=== PATIENT | female | born 1955 | race Caucasian/White ===

== ENCOUNTER 2017-02-11 21:55 | Inpatient (IN) | payer OTHER ==
[~2017-02-11] VITALS: Ht 152.4 cm; Wt 98.0 kg
[2017-02-11] MEDS ORDERED: ONDANSETRON INJ 2 MG/ML 2 ML VIAL IV STA (23:10)
[2017-02-11] MEDS ORDERED: OXYC-57 PO (23:13)
[2017-02-11] MEDS ORDERED: VNTHFA/IN INH (23:13)
[2017-02-11] MEDS ORDERED: ESCI10TA17 PO (23:13)
[2017-02-11] MEDS ORDERED: PRIM50TA29 PO (23:13)
[2017-02-11] MEDS ORDERED: CALCCAP14 PO (23:13)
[2017-02-11] MEDS ORDERED: OMEP20CA9 PO (23:13)
[2017-02-11] MEDS ORDERED: MULT-916 PO (23:13)
[2017-02-11] MEDS ORDERED: SODIUM CHLORIDE 0.9% 1000ML 1,000 ML IV ONE (23:15)
[2017-02-11] MEDS ORDERED: MoRPHine SULFATE 4 MG/ML 1 ML CARP\\VIAL IV ONE (23:15)
[2017-02-11 23:31] LABS: BASO % 0.5 %; BASO ABS # 0.03 K/uL (0-0.2); COMPLETE YES; HEMATOCRIT 44.6 % (37-47); IG% 0.2 %; LYMPH % 24.8 %; LYMPH ABS # 1.65 K/uL (1.2-3.4); MEAN CELL VOLUME 92.5 fL (80-100); MEAN CORPUSCULAR HEMOGLOBIN 30.1 pg (25-34); MEAN CORPUSCULAR HGB CONC 32.5 g/dl (32-36); MEAN PLATELET VOLUME 9.7 fL (7.4-10.4); MONO % 7.7 %; NEUT % 64.8 %; PLATELET COUNT 308 K/uL (130-400); RED BLOOD COUNT 4.82 M/uL (4.2-5.4); WHITE BLOOD COUNT 6.64 K/uL (4.8-10.8)
[2017-02-11 23:55] LABS: BUN/CREATININE RATIO 23.1 (10-20); CALCIUM 9.3 mg/dl (8.5-10.1); CREATININE 0.6 mg/dl (0.60-1.20); POTASSIUM 3.7 mmol/L (3.5-5.1)
[2017-02-11 23:58] LABS: ALB/GLOB RATIO 0.8 (0.9-2)
[2017-02-12] MEDS ORDERED: OPTIRAY 320 IV PRN (00:15)
--- NOTE | 2017-02-12 03:08 | EMERGENCY ROOM VISIT NOTE ---
ED Visit Note First contact with patient: 22:49 I have personally evaluated and examined this patient. I agree with assessment and plan of Dereje Spencer PA-C.
--- NOTE | 2017-02-12 04:33 | EMERGENCY ROOM VISIT NOTE ---
History First contact with patient: 22:49 Chief Complaint: ABDOMINAL PAIN Stated Complaint: GENERALIZED ILLNESS Nursing Triage Summary: Patient arrived via EMS. EMS reports patient had a fall last week. EMS reports Patient at home today with nausea and vomiting x4 days. Patient states "I haven't eaten in four days and I can't keep anything down, I am dehydrated." Patient reports right upper quadrant pain that started today after eating a peanutbutter candy at a 3/10 in intensity. Patient respirations at 30 upon ems arrival and patient 90% on room air. Patient palced on O2 @ 4lpm by ems with sats rising to 100%. Patient reports hisrtoy of right cerebelar ataxia with difficulty using right side of body. History of Present Illness The patient is a 61 year old female who presents to the Emergency Room for evaluation of multiple complaints. The patient states that she has had nausea and vomiting for the past 4 days and has not been able to eat or drink because of this. She feels dehydrated. The patient states that about one hour prior to contacting EMS she ate a peanut butter and chocolate candy, which caused her 9/10 epigastric abdominal pain. The patient was not able to get comfortable, and contacted EMS for her symptoms. On arrival the patient was anxious with a pulse ox of 90%. She was given oxygen, which did boost her saturation to 100%. The patient also reports having several falls about one week ago, where she has followed with her primary care physician. She believes that she fell onto her right side hip and buttocks. She attempted to take a Percocet today without any relief of her symptoms. She has not had fever or chills. No chest pain or shortness of breath. 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. She was to have physical therapy, but is having insurance difficulties and has not been able to do this. She believes this may contribute to her difficulty walking and her fall last week. The patient does not have numbness or paresthesias. She rates her current discomfort an 8/10, only slightly improved from the initial pain. She does not report a history of abdominal surgery. Review of Systems More than 10 systems were reviewed and otherwise negative with the exception of history of present illness. Past Medical/Surgical History Reported history of cerebellar ataxia Family History No pertinent family history Social History Smoking Status: Never Smoker Current/Historical Medications Scheduled Calcium Carbonate-Cholecalcife (Calcium/Vitamin D3), 1 CAP PO QAM Escitalopram (Lexapro), 10 MG PO QAM Multiple Vitamins W/ Minerals (Multivitamin Adults 50+), 1 TAB PO QAM Omeprazole (Prilosec), 20 MG PO QAM Primidone (Mysoline), 100 MG PO HS Scheduled PRN Albuterol Hfa (Ventolin Hfa), 1-2 PUFFS INH Q6H PRN for Shortness of Breath Oxycodone/Acetaminophen 5MG/325MG (Percocet 5MG/325MG), 1 TABLET PO Q4H PRN for Pain Allergies Coded Allergies: Amoxicillin (Verified Allergy, Intermediate, RASH ALL OVER BODY, 02/11/17) Clavulanic Acid (Verified Allergy, Intermediate, RASH ALL OVER BODY, ) Oat Rolled (Verified Allergy, Intermediate, RASH, 02/11/17) Physical Exam Vital Signs Date Time Temp Pulse Resp B/P Pulse Ox O2 Delivery O2 Flow Rate FiO2 02/12/17 04:11 70 18 139/54 94 Nasal Cannula 2.0 02/12/17 03:05 66 02/12/17 02:11 52 18 135/68 94 Nasal Cannula 2.0 02/12/17 00:30 51 18 155/61 95 Nasal Cannula 2.0 02/12/17 00:02 65 18 96/66 95 Nasal Cannula 2.0 02/11/17 23:17 67 02/11/17 22:04 36.6 55 20 158/66 94 Nasal Cannula 2.0 Physical Exam VITALS: Vitals are noted on the nurse's note and reviewed by myself. Vital signs stable. GENERAL: Chronically ill-appearing female who is in moderate discomfort. She is holding her abdomen with her right arm and is uncomfortable with movement in the ER bed. HEART: Regular rate and rhythm without murmurs gallops or rubs. LUNGS: Clear to auscultation bilaterally without wheezes, rales or rhonchi. No retractions or accessory muscle use. ABDOMEN: Positive normal bowel sounds x 4. Soft with generalized tenderness but does appear worse in the epigastrium and right upper quadrant. There is no distinct lower abdominal tenderness or CVA tenderness. MUSCULOSKELETAL: No muscle atrophy, erythema, or edema noted. There is mild tenderness throughout the right side chest wall into the right upper quadrant. No obvious flail chest, lacerations, or abrasions. There is tenderness of the low lumbar spine into the sacrum. NEURO: Patient was alert and oriented to person place and time. Medical Decision & Procedures ER Provider Diagnostic Interpretation: Preliminary Findings Only See Final Report For Complete Findings US GALLBLADDER: Dense enlarged liver likely fatty. Cholelithiasis without acute cholecystitis. CBD slightly prominent at 7 mm. Consider MRCP if further clinical concern. Pancreas not well seen. Right kidney unremarkable. Preliminary Findings Only See Final Report For Complete Findings CT CHEST With Contrast: Bibasilar lung atelectasis. No pleural effusion or pneumothorax. Osseous structures intact. Fatty liver. Small low-density lesion in the liver. CT ABDOMEN & PELVIS: Irregularity slight compression of as S1, S2 vertebral bodies, worrisome for mild acute fracture. Mild presacral stranding. No malalignment. Fatty liver. Small low-density lesion in liver. Small hiatal hernia. Normal appendix. Scattered colonic tics. Uterus absent. 2.4 cm lesion in the right ovary. Laboratory Results 02/11/17 20:52 Red Blood Count 4.82, Mean Corpuscular Volume 92.5, Mean Corpuscular Hemoglobin 30.1, Mean Corpuscular Hemoglobin Concent 32.5, Mean Platelet Volume 9.7, Neutrophils (%) (Auto) 64.8, Lymphocytes (%) (Auto) 24.8, Monocytes (%) (Auto) 7.7, Eosinophils (%) (Auto) 2.0, Basophils (%) (Auto) 0.5, Neutrophils # (Auto) 4.31, Lymphocytes # (Auto) 1.65, Monocytes # (Auto) 0.51, Eosinophils # (Auto) 0.13, Basophils # (Auto) 0.03 02/11/17 20:52 Test 02/11/17 20:52 White Blood Count 6.64 K/uL (4.8-10.8) Red Blood Count 4.82 M/uL (4.2-5.4) Hemoglobin 14.5 g/dL (12.0-16.0) Hematocrit 44.6 % (37-47) Mean Corpuscular Volume 92.5 fL (80-100) Mean Corpuscular Hemoglobin 30.1 pg (25-34) Mean Corpuscular Hemoglobin Concent 32.5 g/dl (32-36) Platelet Count 308 K/uL (130-400) Mean Platelet Volume 9.7 fL (7.4-10.4) Neutrophils (%) (Auto) 64.8 % Lymphocytes (%) (Auto) 24.8 % Monocytes (%) (Auto) 7.7 % Eosinophils (%) (Auto) 2.0 % Basophils (%) (Auto) 0.5 % Neutrophils # (Auto) 4.31 K/uL (1.4-6.5) Lymphocytes # (Auto) 1.65 K/uL (1.2-3.4) Monocytes # (Auto) 0.51 K/uL (0.11-0.59) Eosinophils # (Auto) 0.13 K/uL (0-0.5) Basophils # (Auto) 0.03 K/uL (0-0.2) RDW Standard Deviation 42.3 fL (36.4-46.3) RDW Coefficient of Variation 12.5 % (11.5-14.5) Immature Granulocyte % (Auto) 0.2 % Immature Granulocyte # (Auto) 0.01 K/uL (0.00-0.02) Anion Gap 5.0 mmol/L (3-11) Est Creatinine Clear Calc Drug Dose 103.4 ml/min Estimated GFR () 114.0 Estimated GFR (Non- 98.4 BUN/Creatinine Ratio 23.1 (10-20) Calcium Level 9.3 mg/dl (8.5-10.1) Total Bilirubin 0.6 mg/dl (0.2-1) Aspartate Amino Transf (AST/SGOT) 33 U/L (15-37) Alanine Aminotransferase (ALT/SGPT) 45 U/L (12-78) Alkaline Phosphatase 121 U/L (45-117) Total Protein 8.1 gm/dl (6.4-8.2) Albumin 3.7 gm/dl (3.4-5.0) Globulin 4.4 gm/dl (2.5-4.0) Albumin/Globulin Ratio 0.8 (0.9-2) Lipase 121 U/L (73-393) Medications Administered Medications (Trade) Dose Ordered Sig/Rachana Route Start Time Stop Time Status Last Admin Dose Admin Sodium Chloride (Nss 1000ml) 1,000 ml @ 999 mls/hr Q1H1M ONCE IV 02/11/17 23:15 02/12/17 00:15 DC 02/11/17 23:17 999 MLS/HR Ondansetron HCl (Zofran Inj) 4 mg NOW STAT IV 02/11/17 23:10 02/11/17 23:13 DC 02/11/17 23:17 4 MG Morphine Sulfate (MoRPHine SULFATE INJ) 4 mg NOW ONCE IV 02/11/17 23:15 02/11/17 23:16 DC 02/11/17 23:17 4 MG ED Course Physical exam and history were performed. Nursing notes and EMR were reviewed. Patient appears to have several fissures bringing her to the emergency department today. On examination she appears uncomfortable and is holding her right side abdomen. IV access was established and labs were obtained. The patient was hydrated and medicated as above. There is concern that her symptoms could represent a biliary etiology, and ultrasound was performed. Initially the patient has this vague right sided chest wall pain into her right side abdomen, and I did elect to perform CT imaging of the chest, abdomen, and pelvis. The patient's blood work is as above and was reviewed. She does not have a significantly elevated white blood cell count, gross anemia, bandemia, or significant electrolyte imbalance. Lipase and transaminases are nondiagnostic. Her main labs are fairly unremarkable. Ultrasound does show cholelithiasis with a dilated common bile duct. There is no obvious biliary stone. CT scans do not show acute findings in the lungs or abdomen. There appears to be acute or subacute fractures of the sacrum. On continued evaluation the patient was with persistent discomfort, although was somewhat improved. She did add additional history regarding her fall, and she does have palpable tenderness of her sacrum. CT scan does show very small fractures, but this area does not appear with obvious signs of infection. The patient did not report any neurologic deficit to myself. She has some ambulatory dysfunction at baseline, and this certainly is not helping her with her activities of daily living. I discussed the case with my attending physician, Dr. Reagan, who also independently evaluated the patient. We have concern for the patient's abdominal pain, particularly as it does seem biliary in nature. She has not been able to eat or drink because of her symptoms, and only appears improved after IV medication. She also has several ongoing chronic conditions that may benefit from further management. I discussed the case with the on-call hospitalist who agreed to evaluate the patient here in the emergency department for further care and management. Please see their dictation for further patient course, plan, and disposition. The chart was completed utilizing [employer] Speech Voice Recognition Software. Grammatical errors, random word insertions, pronoun errors, and incomplete sentences are an occasional consequence of this system due to software limitations, ambient noise, and hardware issues. Any formal questions or concerns about the content, text, or information contained within the body of this dictation should be directly addressed to the provider for clarification. . Medical Decision Differential diagnosis: Etiologies such as appendicitis, diverticulitis, PUD, biliary pathology, UTI, pancreatitis, obstruction, mesenteric ischemia, aortic pathology, infections, inflammatory bowel disease, renal colic, as well as others were entertained. Impression Primary Impression: Right upper quadrant abdominal pain Additional Impressions: Nausea & vomiting Sacral fracture Departure Information Referrals Bc Landis (PCP) Patient Instructions [facility] Problem Qualifiers
[2017-02-12] MEDS ORDERED: IV FLUIDS COMPLETED PRN (05:00)
[2017-02-12 05:09] VITALS: Ht 152.4 cm; Wt 98.0 kg
[2017-02-12] MEDS ORDERED: MICONAZOLE NITRATE POWDER 43 GM EXT PRN (05:45)
--- NOTE | 2017-02-12 06:40 | DIAGNOSTIC IMAGING REPORT ---
ABDOMINAL ULTRASOUND, RIGHT UPPER QUADRANT HISTORY: Fall. RUQ abd pain possibly worse with food. COMPARISON: None. FINDINGS: Increased hepatic echogenicity is noted. Tiny echogenic foci within the gallbladder likely reflect small stones. There is minimal sludge within the gallbladder. There is no gallbladder wall thickening. The pancreatic body is normal. The head and tail are obscured. There is no right hydronephrosis. Caliber of the common bile duct is at the upper limits of normal. IMPRESSION: 1. Fatty liver. 2. Cholelithiasis. No gallbladder wall thickening. Electronically signed by: Demetris Lezama M.D. 02/12/2017 6:39 AM Dictated Date/Time: 02/12/2017 6:36 AM
[2017-02-12] MEDS ORDERED: ONDANSETRON INJ 2 MG/ML 2 ML VIAL IV PRN (07:00)
--- NOTE | 2017-02-12 07:06 | DIAGNOSTIC IMAGING REPORT ---
CT OF THE CHEST WITH IV CONTRAST CLINICAL HISTORY: Fall. Right low chest/ruq abd pain COMPARISON STUDY: No previous studies for comparison. TECHNIQUE: Following IV administration of 93 mL of Optiray-320, helical axial images of the chest were obtained. Images were viewed in the axial, sagittal and coronal planes. IV contrast was administered without complication. FINDINGS: No pneumothorax or pleural effusion is present. Ground glass opacities reflect atelectasis. There is moderate cardiomegaly. No pericardial effusion is identified. No enlarged thoracic lymph nodes are present. No acute rib or thoracic spine fractures are present. The abdomen and pelvis will be reported separately. There is fatty infiltration of the liver with a 1.3 cm left hepatic lobe lesion which is likely benign. IMPRESSION: 1. No acute traumatic findings within the chest. 2. Moderate cardiomegaly. 3. Dependent and ground glass opacities within lungs consistent with atelectasis. Electronically signed by: Demetris Lezama M.D. 02/12/2017 7:05 AM Dictated Date/Time: 02/12/2017 6:58 AM
--- NOTE | 2017-02-12 07:30 | History and Physical ---
History & Physical Date & Time of Service: February 12, 2017 at 07:22 Chief Complaint: Nausea/Vomiting, Ruq Pain Primary Care Physician: Bc Landis History of Present Illness Source: patient Mrs Shea is a 61 year old female with cerebellar ataxia who presents to the ER with nausea and abdominal pain. The abdominal pain only slightly improved with medication in the ER and she notes is mostly epigastric and RUQ regions. The pain is much worse with eating and this makes her vomit. She denies any change of bowel habit. No GI bleeding. She was also hypoxic when arrived in the ER which improved with 2L O2 via NC of which the etiology is unclear. She denies any fevers or chills. Past Medical/Surgical History Cerebellar ataxia Social History Smoking Status: Former Smoker Allergies Coded Allergies: Amoxicillin (Verified Allergy, Intermediate, RASH ALL OVER BODY, 02/11/17) Clavulanic Acid (Verified Allergy, Intermediate, RASH ALL OVER BODY, ) Oat Rolled (Verified Allergy, Intermediate, RASH, 02/11/17) Home Medications Scheduled Calcium Carbonate-Cholecalcife (Calcium/Vitamin D3), 1 CAP PO QAM Escitalopram (Lexapro), 10 MG PO QAM Lidocaine (Lidocaine), 1 PATCH TD QAM Multiple Vitamins W/ Minerals (Multivitamin Adults 50+), 1 TAB PO QAM Omeprazole (Prilosec), 20 MG PO QAM Primidone (Mysoline), 100 MG PO HS Scheduled PRN Albuterol Hfa (Ventolin Hfa), 1-2 PUFFS INH Q6H PRN for Shortness of Breath Oxycodone/Acetaminophen 5MG/325MG (Percocet 5MG/325MG), 1 TABLET PO Q4H PRN for Pain Review of Systems Constitutional: No fever, No chills Eyes: No worsening of vision ENT: No hearing loss Respiratory: No cough, No sputum, No wheezing, No shortness of breath Cardiovascular: No chest pain Abdomen: + pain, + nausea, + vomiting, No diarrhea, No constipation, No GI bleeding Musculoskeletal: No joint pain, No muscle pain Genitourinary - Female: No dysuria, No urinary frequency Neurologic: No weakness Endocrine: No fatigue Hematologic / Lymphatic: No abnormal bleeding/bruising Integumentary: No rash, No itch Physical Exam Vital Signs Date Time Temp Pulse Resp B/P Pulse Ox O2 Delivery O2 Flow Rate FiO2 02/12/17 05:10 Nasal Cannula 2.0 02/12/17 05:09 Nasal Cannula 2.0 02/12/17 04:11 70 18 139/54 94 Nasal Cannula 2.0 02/12/17 03:05 66 02/12/17 02:11 52 18 135/68 94 Nasal Cannula 2.0 02/12/17 00:30 51 18 155/61 95 Nasal Cannula 2.0 02/12/17 00:02 65 18 96/66 95 Nasal Cannula 2.0 02/11/17 23:17 67 02/11/17 22:04 36.6 55 20 158/66 94 Nasal Cannula 2.0 General Appearance: WD/WN, + mild distress (from pain) Respiratory/Chest: chest non-tender, lungs clear, normal breath sounds, no respiratory distress, no accessory muscle use Cardiovascular: regular rate, rhythm, no edema, no murmur, normal peripheral pulses Abdomen/GI: normal bowel sounds, soft (non distended), + tenderness ( generalized without rebound or guarding) Back: no CVA tenderness Extremities/Musculoskelatal: no calf tenderness, normal capillary refill, no pedal edema Neurologic/Psych: no motor/sensory deficits (grossly moving all 4 limbs equally , gait not assessed), alert, oriented x 3 Skin: normal color, warm/dry, no rash Diagnostics Laboratory Results Results Past 24 Hours Test 02/11/17 20:52 Range/Units White Blood Count 6.64 4.8-10.8 K/uL Red Blood Count 4.82 4.2-5.4 M/uL Hemoglobin 14.5 12.0-16.0 g/dL Hematocrit 44.6 37-47 % Mean Corpuscular Volume 92.5 80-100 fL Mean Corpuscular Hemoglobin 30.1 25-34 pg Mean Corpuscular Hemoglobin Concent 32.5 32-36 g/dl Platelet Count 308 130-400 K/uL Mean Platelet Volume 9.7 7.4-10.4 fL Neutrophils (%) (Auto) 64.8 % Lymphocytes (%) (Auto) 24.8 % Monocytes (%) (Auto) 7.7 % Eosinophils (%) (Auto) 2.0 % Basophils (%) (Auto) 0.5 % Neutrophils # (Auto) 4.31 1.4-6.5 K/uL Lymphocytes # (Auto) 1.65 1.2-3.4 K/uL Monocytes # (Auto) 0.51 0.11-0.59 K/uL Eosinophils # (Auto) 0.13 0-0.5 K/uL Basophils # (Auto) 0.03 0-0.2 K/uL RDW Standard Deviation 42.3 36.4-46.3 fL RDW Coefficient of Variation 12.5 11.5-14.5 % Immature Granulocyte % (Auto) 0.2 % Immature Granulocyte # (Auto) 0.01 0.00-0.02 K/uL Sodium Level 139 136-145 mmol/L Potassium Level 3.7 3.5-5.1 mmol/L Chloride Level 102 98-107 mmol/L Carbon Dioxide Level 32 21-32 mmol/L Anion Gap 5.0 3-11 mmol/L Blood Urea Nitrogen 14 7-18 mg/dl Creatinine 0.60 0.60-1.20 mg/dl Est Creatinine Clear Calc Drug Dose 103.4 ml/min Estimated GFR () 114.0 Estimated GFR (Non- 98.4 BUN/Creatinine Ratio 23.1 10-20 Random Glucose 110 70-99 mg/dl Calcium Level 9.3 8.5-10.1 mg/dl Total Bilirubin 0.6 0.2-1 mg/dl Aspartate Amino Transf (AST/SGOT) 33 15-37 U/L Alanine Aminotransferase (ALT/SGPT) 45 12-78 U/L Alkaline Phosphatase 121 45-117 U/L Total Protein 8.1 6.4-8.2 gm/dl Albumin 3.7 3.4-5.0 gm/dl Globulin 4.4 2.5-4.0 gm/dl Albumin/Globulin Ratio 0.8 0.9-2 Lipase 121 73-393 U/L Diagnostic Radiology ABDOMINAL ULTRASOUND, RIGHT UPPER QUADRANT HISTORY: Fall. RUQ abd pain possibly worse with food. COMPARISON: None. FINDINGS: Increased hepatic echogenicity is noted. Tiny echogenic foci within the gallbladder likely reflect small stones. There is minimal sludge within the gallbladder. There is no gallbladder wall thickening. The pancreatic body is normal. The head and tail are obscured. There is no right hydronephrosis. Caliber of the common bile duct is at the upper limits of normal. IMPRESSION: 1. Fatty liver. 2. Cholelithiasis. No gallbladder wall thickening. Electronically signed by: Demetris Lezama M.D. 02/12/2017 6:39 AM Dictated Date/Time: 02/12/2017 6:[address] OF THE CHEST WITH IV CONTRAST CLINICAL HISTORY: Fall. Right low chest/ruq abd pain COMPARISON STUDY: No previous studies for comparison. TECHNIQUE: Following IV administration of 93 mL of Optiray-320, helical axial images of the chest were obtained. Images were viewed in the axial, sagittal and coronal planes. IV contrast was administered without complication. FINDINGS: No pneumothorax or pleural effusion is present. Ground glass opacities reflect atelectasis. There is moderate cardiomegaly. No pericardial effusion is identified. No enlarged thoracic lymph nodes are present. No acute rib or thoracic spine fractures are present. The abdomen and pelvis will be reported separately. There is fatty infiltration of the liver with a 1.3 cm left hepatic lobe lesion which is likely benign. IMPRESSION: 1. No acute traumatic findings within the chest. 2. Moderate cardiomegaly. 3. Dependent and ground glass opacities within lungs consistent with atelectasis. Electronically signed by: Demetris Lezama M.D. 02/12/2017 7:05 AM Dictated Date/Time: 02/12/2017 6:58 AM ABDOMEN AND PELVIS CT WITH IV CONTRAST CT DOSE: 1209.46 mGy.cm HISTORY: fall. right low chest/right upper quadrant abdominal pain TECHNIQUE: Multiaxial CT images of the abdomen and pelvis were performed following the use of intravenous contrast. COMPARISON STUDY: None. FINDINGS: Cortical irregularity at S2 and within the lower sacrum likely representing acute fractures. There is also an acute fracture within the right sacral wing which is nondisplaced. Mild dependent changes seen at the lung bases. No pneumoperitoneum. No pneumatosis. Mild presacral soft tissue swelling. The uterus is surgically absent. Normal bladder. Colonic diverticulosis. No bowel wall thickening or obstruction. Normal appendix. Tiny fat-containing umbilical hernia. No retroperitoneal lymphadenopathy. The spleen, adrenal glands, pancreas, and kidneys are unremarkable. No hydronephrosis. Normal gallbladder. A 1.3 cm hypodense lesion within the left hepatic lobe. This favors a cyst. IMPRESSION: 1. Nondisplaced acute sacral fractures as described above. 2. Additional findings as described above. Electronically signed by: Jose Bashir M.D. 02/12/2017 7:52 AM Dictated Date/Time: 02/12/2017 7:45 AM Impression Assessment and Plan 61 year old female with nausea, vomiting and RUQ abdominal pain. Cholelithiasis on US with CBD dilation to 7mm but no acute cholecystitis. RUQ/epigastric abdominal pain - gastroenteritis vs. gastritis vs. cholelithiasis. No acute infection but will bring in under observation as she currently is unable to tolerate food or liquids. - Zofran for nausea - Acetaminophen +/- morphine for pain - Switch her omeprazole to pantoprazole - NPO except ice chips + IV fluids - Consult gastroenterology Non Displaced sacral fracture - Acetaminophen +/- morphine 4mg IV Q4H PRN Code - Full VTE Prophylaxis - will hold off chemical prophylaxis currently in case her pain worsens and she requires surgery. - SCDs Disposition - observation status to med/surg Level of Care Med/Surg Advanced Directives Existing Living Will: No Existing Power of Lead Data Entry Operator: No Resuscitation Status FULL RESUSCITATION VTE Prophylaxis VTE Risk Assessment Done? Y/N: Yes Risk Level: Moderate Given or contraindicated: Treatment not indicated Additional Copies To Bc Landis Resident Tracking Resident Involvement: Resident Care Provided Care Provided: Adult Hospital Medicine Assessment and Plan Attending Addendum: I have physically seen and examined this patient, have directed their medical care, have supervised the medical residents activities, and agree with the H&P as noted above, with the following changes: NONE
[2017-02-12] MEDS ORDERED: PANTOprazole INJ 40 MG in SYRINGE 0 ML IV ONE (07:45)
[2017-02-12] MEDS: SODIUM CHLORIDE 0.9% 1000ML 1,000 ML IV SCH ×3 (07:47→23:40)
[2017-02-12] MEDS: MoRPHine SULFATE 2 MG/ML CARP IV PRN ×4 (07:48→22:38)
--- NOTE | 2017-02-12 07:53 | DIAGNOSTIC IMAGING REPORT ---
ABDOMEN AND PELVIS CT WITH IV CONTRAST CT DOSE: 1209.46 mGy.cm HISTORY: fall. right low chest/right upper quadrant abdominal pain TECHNIQUE: Multiaxial CT images of the abdomen and pelvis were performed following the use of intravenous contrast. COMPARISON STUDY: None. FINDINGS: Cortical irregularity at S2 and within the lower sacrum likely representing acute fractures. There is also an acute fracture within the right sacral wing which is nondisplaced. Mild dependent changes seen at the lung bases. No pneumoperitoneum. No pneumatosis. Mild presacral soft tissue swelling. The uterus is surgically absent. Normal bladder. Colonic diverticulosis. No bowel wall thickening or obstruction. Normal appendix. Tiny fat-containing umbilical hernia. No retroperitoneal lymphadenopathy. The spleen, adrenal glands, pancreas, and kidneys are unremarkable. No hydronephrosis. Normal gallbladder. A 1.3 cm hypodense lesion within the left hepatic lobe. This favors a cyst. IMPRESSION: 1. Nondisplaced acute sacral fractures as described above. 2. Additional findings as described above. Electronically signed by: Jose Bashir M.D. 02/12/2017 7:52 AM Dictated Date/Time: 02/12/2017 7:45 AM
[2017-02-12 07:56] LABS: HEMATOCRIT 41.7 % (37-47); IG% 0.2 %; LYMPH % 14.7 %; LYMPH ABS # 0.89 K/uL (1.2-3.4); MEAN CELL VOLUME 92.7 fL (80-100); MEAN CORPUSCULAR HEMOGLOBIN 30.7 pg (25-34); MEAN PLATELET VOLUME 9.5 fL (7.4-10.4); MONO % 2.3 %; NEUT % 82.8 %; PLATELET COUNT 270 K/uL (130-400); WHITE BLOOD COUNT 6.06 K/uL (4.8-10.8)
[2017-02-12 08:05] LABS: ESTIMATED AVERAGE GLUCOSE 105 mg/dl; HA1C FLAG Normal (Normal)
[2017-02-12 08:10] VITALS: BP 147/76; PULSE 61; TEMP 36.6; O2SAT 95
[2017-02-12 08:16] LABS: BUN/CREATININE RATIO 18.4 (10-20); CREATININE 0.55 mg/dl (0.60-1.20); POTASSIUM 3.9 mmol/L (3.5-5.1)
[2017-02-12 08:25] LABS: COMPLETE YES; MEAN CORPUSCULAR HGB CONC 33.1 g/dl (32-36)
[2017-02-12 08:27] LABS: CALCIUM 8.6 mg/dl (8.5-10.1)
[2017-02-12] MEDS ORDERED: NURSING DECISION MEDICATION ORDER SCH (11:15)
[2017-02-12] MEDS: MICONAZOLE NITRATE POWDER 43 GM EXT SCH ×2 (13:12→21:58)
--- NOTE | 2017-02-12 15:04 | Progress Note ---
Subjective Date of Service: February 12, 2017. Subjective Pt evaluation today including: conversation w/ patient, physical exam, chart review, lab review, review of studies, conversation w/ alliances consultant (Dr Abdi ), review of inpatient medication list Problem List Medical Problems: (1) Right upper quadrant abdominal pain Status: Acute (2) Sacral fracture Status: Acute Review of Systems Constitutional: + fatigue, + weakness ENT: No hearing loss Respiratory: No dyspnea at rest, No dyspnea on exertion, No shortness of breath , No wheezing Cardiac: No chest pain, No palpitations Abdomen: + nausea, + pain, No vomiting Medications Current Inpatient Medications Medications (Trade) Dose Ordered Sig/Rachana Route Start Time Stop Time Status Last Admin Dose Admin Ioversol (Optiray 320) 100 ml UD PRN IV 02/12/17 00:15 02/16/17 00:14 Miscellaneous (Iv Fluids Completed) 1 ea PRN PRN N/A 02/12/17 05:00 02/12/18 04:59 Miconazole Nitrate (Desenex Powder) 1 appln PRN PRN EXT 02/12/17 05:45 03/14/17 05:44 02/12/17 09:31 1 APPLN Ondansetron HCl 4 mg 4 mg Q4H PRN IV 02/12/17 07:00 03/14/17 06:59 Pantoprazole Sodium 40 mg/ Syringe 10 ml @ 5 mls/min DAILY@11 IV 02/13/17 11:00 03/15/17 10:59 Sodium Chloride (Nss 1000ml) 1,000 ml @ 125 mls/hr Q8H IV 02/12/17 07:30 03/14/17 07:29 02/12/17 07:47 125 MLS/HR Morphine Sulfate (MoRPHine SULFATE INJ) 2 mg Q4H PRN IV 02/12/17 07:30 02/26/17 07:29 02/12/17 13:14 2 MG Miconazole Nitrate (Desenex Powder) 1 appln BID EXT 02/12/17 12:00 03/14/17 11:59 02/12/17 13:12 1 APPLN Objective Vital Signs Date Time Temp Pulse Resp B/P Pulse Ox O2 Delivery O2 Flow Rate FiO2 02/12/17 08:10 36.6 61 16 147/76 95 2.0 02/12/17 07:40 Nasal Cannula 2.0 02/12/17 05:10 Nasal Cannula 2.0 02/12/17 05:09 Nasal Cannula 2.0 02/12/17 04:11 70 18 139/54 94 Nasal Cannula 2.0 02/12/17 03:05 66 02/12/17 02:11 52 18 135/68 94 Nasal Cannula 2.0 02/12/17 00:30 51 18 155/61 95 Nasal Cannula 2.0 02/12/17 00:02 65 18 96/66 95 Nasal Cannula 2.0 02/11/17 23:17 67 02/11/17 22:04 36.6 55 20 158/66 94 Nasal Cannula 2.0 Physical Exam General Appearance: WD/WN, no apparent distress Eyes: normal inspection, EOMI ENT: normal ENT inspection, hearing grossly normal Neck: no adenopathy Respiratory/Chest: chest non-tender, lungs clear, normal breath sounds, no respiratory distress, no accessory muscle use Cardiovascular: regular rate, rhythm, no edema, no gallop, no JVD, no murmur Abdomen: normal bowel sounds, + distended, + guarding, + tenderness (RUQ) Extremities: normal range of motion, non-tender, normal inspection, no pedal edema 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, no motor/sensory deficits, alert, normal mood/affect, oriented x 3 Skin: normal color, warm/dry, no rash Laboratory Results Last 24 Hours Test 02/11/17 20:52 02/12/17 07:50 White Blood Count 6.64 K/uL 6.06 K/uL Red Blood Count 4.82 M/uL 4.50 M/uL Hemoglobin 14.5 g/dL 13.8 g/dL Hematocrit 44.6 % 41.7 % Mean Corpuscular Volume 92.5 fL 92.7 fL Mean Corpuscular Hemoglobin 30.1 pg 30.7 pg Mean Corpuscular Hemoglobin Concent 32.5 g/dl 33.1 g/dl Platelet Count 308 K/uL 270 K/uL Mean Platelet Volume 9.7 fL 9.5 fL Neutrophils (%) (Auto) 64.8 % 82.8 % Lymphocytes (%) (Auto) 24.8 % 14.7 % Monocytes (%) (Auto) 7.7 % 2.3 % Eosinophils (%) (Auto) 2.0 % 0.0 % Basophils (%) (Auto) 0.5 % 0.0 % Neutrophils # (Auto) 4.31 K/uL 5.02 K/uL Lymphocytes # (Auto) 1.65 K/uL 0.89 K/uL Monocytes # (Auto) 0.51 K/uL 0.14 K/uL Eosinophils # (Auto) 0.13 K/uL 0.00 K/uL Basophils # (Auto) 0.03 K/uL 0.00 K/uL RDW Standard Deviation 42.3 fL 42.4 fL RDW Coefficient of Variation 12.5 % 12.6 % Immature Granulocyte % (Auto) 0.2 % 0.2 % Immature Granulocyte # (Auto) 0.01 K/uL 0.01 K/uL Sodium Level 139 mmol/L 141 mmol/L Potassium Level 3.7 mmol/L 3.9 mmol/L Chloride Level 102 mmol/L 106 mmol/L Carbon Dioxide Level 32 mmol/L 26 mmol/L Anion Gap 5.0 mmol/L 9.0 mmol/L Blood Urea Nitrogen 14 mg/dl 10 mg/dl Creatinine 0.60 mg/dl 0.55 mg/dl Est Creatinine Clear Calc Drug Dose 103.4 ml/min 112.8 ml/min Estimated GFR () 114.0 117.3 Estimated GFR (Non- 98.4 101.2 BUN/Creatinine Ratio 23.1 18.4 Random Glucose 110 mg/dl 127 mg/dl Calcium Level 9.3 mg/dl 8.6 mg/dl Total Bilirubin 0.6 mg/dl 0.4 mg/dl Aspartate Amino Transf (AST/SGOT) 33 U/L 30 U/L Alanine Aminotransferase (ALT/SGPT) 45 U/L 41 U/L Alkaline Phosphatase 121 U/L 108 U/L Total Protein 8.1 gm/dl 6.8 gm/dl Albumin 3.7 gm/dl 3.1 gm/dl Globulin 4.4 gm/dl Albumin/Globulin Ratio 0.8 Lipase 121 U/L Estimated Average Glucose 105 mg/dl Hemoglobin A1c 5.3 % Direct Bilirubin 0.1 mg/dl Assessment and Plan 61 year old female with nausea, vomiting and RUQ abdominal pain. Cholelithiasis on US with CBD dilation to 7mm but no acute cholecystitis. RUQ/epigastric abdominal pain cholelithiasis with dilated common bile dust S/P Fall and S2 acute fractures and acute nondisplaced fracture within the right sacral wing (likely osteoporitic fracture due to fall from ground level ) Plan - Zofran/pantoprazole - A -Consult Dr. Bae for possible acute cholecystitis acetaminophen +/- morphine for pain - consult orthopedic for clearance for PT/OT - NPO except ice chips Full Code VTE Prophylaxis - will hold off chemical prophylaxis currently in case her pain worsens and she requires surgery. - SCDs change status to inpatient
[2017-02-12 15:27] VITALS: BP 125/72; PULSE 48; TEMP 36.6; O2SAT 94
--- NOTE | 2017-02-12 15:30 | Surgery Consultation ---
Consultation Date of Consultation: February 12, 2017. Attending Physician: Maty Quigley MD Reason for Consultation: Cholelithiasis, RUQ abdominal pain, acute cholecystitis? (April Pérez PA-C) History of Present Illness Jyothi presented to emergency department last evening with complaint of nausea for 4 days and abdominal pain after eating peanut butter roll. States she had the sensation of vomiting but did not have any emesis. States she had immediate RUQ abdominal pain after eating a peanut butter roll last evening. Rated pain a 10/10. States the pain feels as though "someone is putting their fists into my abdomen". States she has a high tolerance of pain but this caused her to shout in pain. She also states she had a fall about 1 week ago and notice some pain in the right hip /right back area. Denies of any fever, chills, vomiting, vomiting blood, severe heartburn/reflux, changes in bowel habits, diarrhea, constipation, blood in stools, black/tarry stools. Denies of similar abdominal pain or any issues with gallbladder previously. Last colonoscopy within the last year and normal per patient. Only other abdominal surgery was subtotal hysterectomy approximately in 2007. Work up in ER showed no leukocytosis, LFTs within normal limits, total bilirubin within normal limits, US showed gallstones and sludge with borderline dilated common bile duct (measurement not given) No stones identified in CBD. CT scan of abdomen and pelvis showed normal gallbladder. She does have an acute/subacute sacral fracture with no displacement. Since admission last evening she states she is feeling slightly better. Pain currently rated an 8/10. Pain medication helps but not for long periods of time. (April Pérez PA-C) Past Medical/Surgical History Medical Problems: (1) Right upper quadrant abdominal pain Status: Acute (2) Sacral fracture Status: Acute (April Pérez PA-C) Social History Smoking Status: Former Smoker (April Pérez PA-C) Allergies Coded Allergies: Amoxicillin (Verified Allergy, Intermediate, RASH ALL OVER BODY, 02/11/17) Clavulanic Acid (Verified Allergy, Intermediate, RASH ALL OVER BODY, ) Oat Rolled (Verified Allergy, Intermediate, RASH, 02/11/17) Home Medications Scheduled Calcium Carbonate-Cholecalcife (Calcium/Vitamin D3), 1 CAP PO QAM Escitalopram (Lexapro), 10 MG PO QAM Multiple Vitamins W/ Minerals (Multivitamin Adults 50+), 1 TAB PO QAM Omeprazole (Prilosec), 20 MG PO QAM Primidone (Mysoline), 100 MG PO HS Scheduled PRN Albuterol Hfa (Ventolin Hfa), 1-2 PUFFS INH Q6H PRN for Shortness of Breath Oxycodone/Acetaminophen 5MG/325MG (Percocet 5MG/325MG), 1 TABLET PO Q4H PRN for Pain Current Inpatient Medications Current Inpatient Medications Medications (Trade) Dose Ordered Sig/Rachana Route Start Time Stop Time Status Last Admin Dose Admin Ioversol (Optiray 320) 100 ml UD PRN IV 02/12/17 00:15 02/16/17 00:14 Miscellaneous (Iv Fluids Completed) 1 ea PRN PRN N/A 02/12/17 05:00 02/12/18 04:59 Miconazole Nitrate (Desenex Powder) 1 appln PRN PRN EXT 02/12/17 05:45 03/14/17 05:44 02/12/17 09:31 1 APPLN Ondansetron HCl 4 mg 4 mg Q4H PRN IV 02/12/17 07:00 03/14/17 06:59 Pantoprazole Sodium 40 mg/ Syringe 10 ml @ 5 mls/min DAILY@11 IV 02/13/17 11:00 03/15/17 10:59 Sodium Chloride (Nss 1000ml) 1,000 ml @ 125 mls/hr Q8H IV 02/12/17 07:30 03/14/17 07:29 02/12/17 07:47 125 MLS/HR Morphine Sulfate (MoRPHine SULFATE INJ) 2 mg Q4H PRN IV 02/12/17 07:30 02/26/17 07:29 02/12/17 13:14 2 MG Miconazole Nitrate (Desenex Powder) 1 appln BID EXT 02/12/17 12:00 03/14/17 11:59 02/12/17 13:12 1 APPLN (April Pérez ., GARY) Review of Systems Constitutional: + problem reported (anorexia, unable to eat only a few bites of food without nausea/pain), No chills, No fever, No sweats Respiratory: No shortness of breath Cardiovascular: No chest pain Abdomen: + nausea, + pain (RUQ), No constipation, No diarrhea, No vomiting Musculoskeletal: + problem reported (right hip/back pain) Genitourinary - Female: No dysuria Endocrine: No fatigue Integumentary: No itch, No rash (April Pérez, MESERET-C) Physical Exam Date Time Temp Pulse Resp B/P Pulse Ox O2 Delivery O2 Flow Rate FiO2 02/12/17 08:10 36.6 61 16 147/76 95 2.0 02/12/17 07:40 Nasal Cannula 2.0 02/12/17 05:10 Nasal Cannula 2.0 02/12/17 05:09 Nasal Cannula 2.0 02/12/17 04:11 70 18 139/54 94 Nasal Cannula 2.0 02/12/17 03:05 66 02/12/17 02:11 52 18 135/68 94 Nasal Cannula 2.0 02/12/17 00:30 51 18 155/61 95 Nasal Cannula 2.0 02/12/17 00:02 65 18 96/66 95 Nasal Cannula 2.0 02/11/17 23:17 67 02/11/17 22:04 36.6 55 20 158/66 94 Nasal Cannula 2.0 General Appearance: WD/WN, no apparent distress Head: normocephalic, atraumatic Eyes: sclerae normal ENT: hearing grossly normal Respiratory/Chest: lungs clear, normal breath sounds, no respiratory distress, no accessory muscle use Cardiovascular: regular rate, rhythm, no murmur Abdomen/GI: soft (nondistended), no organomegaly, no pulsatile mass, + tenderness (RUQ on deep palpation, negative martinez's sign,) Neurologic/Psych: alert, normal mood/affect, oriented x 3 Skin: normal color, warm/dry, no rash (April Pérez, MESERET-C) Laboratory Results Last 24 Hours Test 02/11/17 20:52 02/12/17 07:50 White Blood Count 6.64 K/uL 6.06 K/uL Red Blood Count 4.82 M/uL 4.50 M/uL Hemoglobin 14.5 g/dL 13.8 g/dL Hematocrit 44.6 % 41.7 % Mean Corpuscular Volume 92.5 fL 92.7 fL Mean Corpuscular Hemoglobin 30.1 pg 30.7 pg Mean Corpuscular Hemoglobin Concent 32.5 g/dl 33.1 g/dl Platelet Count 308 K/uL 270 K/uL Mean Platelet Volume 9.7 fL 9.5 fL Neutrophils (%) (Auto) 64.8 % 82.8 % Lymphocytes (%) (Auto) 24.8 % 14.7 % Monocytes (%) (Auto) 7.7 % 2.3 % Eosinophils (%) (Auto) 2.0 % 0.0 % Basophils (%) (Auto) 0.5 % 0.0 % Neutrophils # (Auto) 4.31 K/uL 5.02 K/uL Lymphocytes # (Auto) 1.65 K/uL 0.89 K/uL Monocytes # (Auto) 0.51 K/uL 0.14 K/uL Eosinophils # (Auto) 0.13 K/uL 0.00 K/uL Basophils # (Auto) 0.03 K/uL 0.00 K/uL RDW Standard Deviation 42.3 fL 42.4 fL RDW Coefficient of Variation 12.5 % 12.6 % Immature Granulocyte % (Auto) 0.2 % 0.2 % Immature Granulocyte # (Auto) 0.01 K/uL 0.01 K/uL Sodium Level 139 mmol/L 141 mmol/L Potassium Level 3.7 mmol/L 3.9 mmol/L Chloride Level 102 mmol/L 106 mmol/L Carbon Dioxide Level 32 mmol/L 26 mmol/L Anion Gap 5.0 mmol/L 9.0 mmol/L Blood Urea Nitrogen 14 mg/dl 10 mg/dl Creatinine 0.60 mg/dl 0.55 mg/dl Est Creatinine Clear Calc Drug Dose 103.4 ml/min 112.8 ml/min Estimated GFR () 114.0 117.3 Estimated GFR (Non- 98.4 101.2 BUN/Creatinine Ratio 23.1 18.4 Random Glucose 110 mg/dl 127 mg/dl Calcium Level 9.3 mg/dl 8.6 mg/dl Total Bilirubin 0.6 mg/dl 0.4 mg/dl Aspartate Amino Transf (AST/SGOT) 33 U/L 30 U/L Alanine Aminotransferase (ALT/SGPT) 45 U/L 41 U/L Alkaline Phosphatase 121 U/L 108 U/L Total Protein 8.1 gm/dl 6.8 gm/dl Albumin 3.7 gm/dl 3.1 gm/dl Globulin 4.4 gm/dl Albumin/Globulin Ratio 0.8 Lipase 121 U/L Estimated Average Glucose 105 mg/dl Hemoglobin A1c 5.3 % Direct Bilirubin 0.1 mg/dl (April Pérez ., PA-C) Assessment & Plan RUQ abdominal pain with associated Nausea Cholelithiasis Possible Acute cholecystitis?? -vitals stable - no leukocytosis - LFTs within normal limits - RUQ abdominal pain on deep palpation however very tender on repeat examination by Dr. Bae Plan: Order HIDA scan to rule out acute cholecystitis Continue conservative management in meantime, IV fluids, IV pain medication/ Zofran prn pain and nausea respectively She may have clear liquids after HIDA scan and NPO after midnight. Continue current management by hospitalist service will continue to monitor Dr. Bae has seen and examined patient, agrees with assessment and plan. (April Pérez ., PA-C) I interviewed and examined this patient and reviewed the labs and radiology images and reports and I agree with the above note. Will await the result of the HIDA scan and make further decisions after that, (Walt Bae M.D.)
[2017-02-12] MEDS ORDERED: ERGOCALCIFEROL 50,000 INTER.UNIT CAP PO SCH (16:00)
--- NOTE | 2017-02-12 16:17 | DIAGNOSTIC IMAGING REPORT ---
LEFT KNEE 3 VIEWS CLINICAL HISTORY: Left knee pain COMPARISON: None. DISCUSSION: There are no acute fractures. There is minor medial joint compartment narrowing. No destructive lesions are evident. There is no radiographic evidence of a significant joint effusion. IMPRESSION: Mild medial joint compartment narrowing. No fractures are visualized. Electronically signed by: David Evans M.D. 02/12/2017 4:15 PM Dictated Date/Time: 02/12/2017 4:15 PM
--- NOTE | 2017-02-12 18:54 | ORTHOPEDIC CONSULTATION REPORT ---
DATE OF CONSULTATION: 02/12/2017 PATIENT OF: Mehul Christian MD CHIEF COMPLAINT: Sacral pain. HISTORY OF PRESENT ILLNESS: This 61-year-old white female is seen on the third floor. The patient was admitted last evening for right-sided hip and low back pain as well as right-sided abdominal pain. The patient has history of cerebellar ataxia and has limited function of her right arm and right leg. She has been evaluated at [facility] for this. She continues to follow there. She has sensation to the right arm and right leg, but has little motor function. She is normally ambulatory at home with a walker. She states approximately 10 days ago she fell at home landing on her right side. She was initially seen at [facility], had x-rays obtained. They were reportedly normal. She was sent home. She has continued to have significant sacral pain with attempts of motion of her lower extremities. She has had even more limited mobility since that time. She was seen last evening in the ED and had CT scan imaging of her abdomen and pelvis performed. At that time nondisplaced acute sacral fractures of S2 and the right sacral wing were noted. They were nondisplaced. She denies any numbness or tingling. No change in bowel or bladder function. She denies any additional falls within the last few days. She did take some Percocet at home without significant improvement. Her PCP prescribed her physical therapy but she had insurance difficulties and was not able to get it started. Right-sided abdominal pain is being evaluated by general surgery. PAST MEDICAL HISTORY: Obesity, history of cerebellar ataxia, and osteoarthritis. FAMILY HISTORY: Noncontributory. SOCIAL HISTORY: No tobacco use, . Lives at home with her spouse. Unemployed. ALLERGIES: KNOWN ALLERGY TO AMOXICILLIN, AUGMENTIN, AND ROLLED OATS. CURRENT MEDICATIONS: Calcium with vitamin D daily, Lexapro 10 mg p.o. daily, multivitamin daily, Prilosec 20 mg p.o. daily, primidone 100 mg p.o. at bedtime, albuterol inhaler 1-2 puffs q. 6 hours p.r.n., and currently Percocet for sacral pain. PAST SURGICAL HISTORY: None. REVIEW OF SYSTEMS: Significant for above stated conditions, otherwise unremarkable. PHYSICAL EXAMINATION: GENERAL: Well-developed, well-nourished middle aged white female in no acute distress. Lying on a bed. Alert and oriented. Morbidly obese. VITAL SIGNS: Temperature 36.6, pulse 61, BP 147/76, respirations 16, O2 sat 95% on 2 liters by nasal cannula. SKIN: Warm and dry with good turgor. No rashes or lesions. No ecchymosis or erythema. MUSCULOSKELETAL: The patient has intact motor function to the left arm. Right arm has a flexed position and limited motion of the shoulder, elbow, wrist and digits. This is due to her cerebellar ataxia. Lower extremities revealed no obvious asymmetry or deformity. Intact motor function to the left ankle, knee, and hip. She has full range of motion of her knee with full terminal extension and flexion to greater than 110 degrees. Motion at the hip does cause pain in her left sacrum. Strength is 5/5 for resisted motion. Right lower extremity has very limited motion with flexion and extension of toes. Passively, she has intact motion to the hip, knee, and ankle, but there is limited active motion. She has no discomfort with palpation over her shoulders, elbows, with the rest of her arms. No pain with palpation over the ankles, shins, knees, or thighs. She does have some left-sided discomfort with palpation over her trochanteric bursa. Currently, she has no pain with palpation over her sacrum or lumbar spine. NEUROLOGIC: Gross sensation is intact across the upper and lower extremities by soft touch. Peripheral pulses are 2+. Right arm and leg clearly have intact sensation to light touch. LABORATORY DATA: CT scan imaging obtained last evening of the abdomen and pelvis shows nondisplaced acute S2 and right sacral wing fractures. These were read by radiology. They were also reviewed by me with Dr. Christian. IMPRESSION: Nondisplaced acute sacral S2 and right sacral wing fractures. PLAN: The patient was educated regarding today's findings. Conservative care measures were discussed. She is able to be ambulatory with weightbearing as tolerated status using a walker. She uses a walker typically at home. These fractures are stable and should not prevent her from ambulating other than from a pain issue. She may participate fully in PT. She does state that she has known DJD in her left knee and previously was told she required surgical intervention. She subsequently had cortisone injections and viscosupplementation injections without success. No previous films of her knee are available. While she is in the hospital I will order additional imaging of her knee to see how severe the arthritis maybe. We will continue to follow while she is in the hospital. Thank you for the consultation of Kermit Monse.
--- NOTE | 2017-02-12 21:53 | GASTROINTESTINAL CONSULTATION ---
DATE OF CONSULTATION: 02/12/2017 REASON FOR EVALUATION: Right upper quadrant pain. HISTORY OF PRESENT ILLNESS: The patient is a 61-year-old female who presented to the Emergency Room with severe pain, particularly in the right upper quadrant over the last 2 days. The patient states she has been nauseated, but has not been vomiting. She has had no previous pain of this type. When evaluated in the ER, her CBC was normal, her alkaline phosphatase was slightly elevated, but returned to normal quickly. She has remained afebrile. An ultrasound of the abdomen showed sludge and small stones in her gallbladder. A CT scan was otherwise negative. Bile duct was normal without any obvious stones. She was seen in surgical consultation and a biliary scan was ordered. Of note is that the patient has not had any obvious bleeding and has been using no aspirin or nonsteroidals to suggest peptic ulcer disease. PAST MEDICAL HISTORY: Remarkable for cerebellar ataxia. MEDICATIONS: Calcium with vitamin D, Lexapro, multiple vitamin, Prilosec and Mysoline, Ventolin and Percocet as needed. ALLERGIES: AMOXICILLIN AND ROLLED OATS. SOCIAL HISTORY: The patient does not smoke. FAMILY HISTORY: Noncontributory. REVIEW OF SYSTEMS: Positive for ongoing pain in the abdomen. PHYSICAL EXAMINATION: GENERAL: The patient appears in no acute distress. VITAL SIGNS: Blood pressure is 139/54, pulse 70, pulse ox at 2 liters is 94%. ABDOMEN: Shows infraumbilical scar from a previous partial hysterectomy. Abdomen is soft. There is tenderness localized to the right upper quadrant, which is worse with deep inspiration consistent with a Ponce sign. IMPRESSION AND PLAN: The patient is having pain consistent with biliary colic. Her physical exam shows discrete tenderness in the right upper quadrant over the gallbladder and she has no risk factors for peptic ulcer disease. At this point, I agree with biliary scan. I think this is most likely can indicate that she has cholecystitis and if it is positive, then probably she will need a cholecystectomy. We will continue to follow the patient, at this point.
[2017-02-12 23:29] VITALS: BP 143/72; PULSE 56; TEMP 36.7; O2SAT 96
[2017-02-13] MEDS: MoRPHine SULFATE 2 MG/ML CARP IV PRN ×4 (02:34→21:42)
[2017-02-13 06:07] LABS: BASO % 0.3 %; BASO ABS # 0.02 K/uL (0-0.2); COMPLETE YES; HEMATOCRIT 39.1 % (37-47); LYMPH % 33.5 %; LYMPH ABS # 2.04 K/uL (1.2-3.4); MEAN CELL VOLUME 93.8 fL (80-100); MEAN CORPUSCULAR HEMOGLOBIN 29.3 pg (25-34); MEAN CORPUSCULAR HGB CONC 31.2 g/dl (32-36); MEAN PLATELET VOLUME 9.7 fL (7.4-10.4); MONO % 6.6 %; NEUT % 57.6 %; PLATELET COUNT 231 K/uL (130-400); RED BLOOD COUNT 4.17 M/uL (4.2-5.4); WHITE BLOOD COUNT 6.09 K/uL (4.8-10.8)
--- NOTE | 2017-02-13 06:42 | Surgery Progress Note ---
Surgery Progress Note Date of Service February 13, 2017. Subjective Resting comfortably but states she still has pian Objective Vital Signs: Date Time Temp Pulse Resp B/P Pulse Ox O2 Delivery O2 Flow Rate FiO2 02/12/17 23:30 Nasal Cannula 2.0 02/12/17 23:29 36.7 56 16 143/72 96 Nasal Cannula 2.0 02/12/17 15:46 Nasal Cannula 2.0 02/12/17 15:27 36.6 48 16 125/72 94 Nasal Cannula 2.0 02/12/17 08:10 36.6 61 16 147/76 95 2.0 02/12/17 07:40 Nasal Cannula 2.0 Abdomen: normal bowel sounds, non distended, soft, + tenderness (RUQ and right anterior lower chest wall) Laboratory Results: Results Past 24 Hours Test 02/12/17 07:50 02/13/17 05:45 Range/Units White Blood Count 6.06 6.09 4.8-10.8 K/uL Red Blood Count 4.50 4.17 4.2-5.4 M/uL Hemoglobin 13.8 12.2 12.0-16.0 g/dL Hematocrit 41.7 39.1 37-47 % Mean Corpuscular Volume 92.7 93.8 80-100 fL Mean Corpuscular Hemoglobin 30.7 29.3 25-34 pg Mean Corpuscular Hemoglobin Concent 33.1 31.2 32-36 g/dl Platelet Count 270 231 130-400 K/uL Mean Platelet Volume 9.5 9.7 7.4-10.4 fL Neutrophils (%) (Auto) 82.8 57.6 % Lymphocytes (%) (Auto) 14.7 33.5 % Monocytes (%) (Auto) 2.3 6.6 % Eosinophils (%) (Auto) 0.0 2.0 % Basophils (%) (Auto) 0.0 0.3 % Neutrophils # (Auto) 5.02 3.51 1.4-6.5 K/uL Lymphocytes # (Auto) 0.89 2.04 1.2-3.4 K/uL Monocytes # (Auto) 0.14 0.40 0.11-0.59 K/uL Eosinophils # (Auto) 0.00 0.12 0-0.5 K/uL Basophils # (Auto) 0.00 0.02 0-0.2 K/uL RDW Standard Deviation 42.4 43.2 36.4-46.3 fL RDW Coefficient of Variation 12.6 12.7 11.5-14.5 % Immature Granulocyte % (Auto) 0.2 0.0 % Immature Granulocyte # (Auto) 0.01 0.00 0.00-0.02 K/uL Sodium Level 141 136-145 mmol/L Potassium Level 3.9 3.5-5.1 mmol/L Chloride Level 106 98-107 mmol/L Carbon Dioxide Level 26 21-32 mmol/L Anion Gap 9.0 3-11 mmol/L Blood Urea Nitrogen 10 7-18 mg/dl Creatinine 0.55 0.60-1.20 mg/dl Est Creatinine Clear Calc Drug Dose 112.8 ml/min Estimated GFR () 117.3 Estimated GFR (Non- 101.2 BUN/Creatinine Ratio 18.4 10-20 Random Glucose 127 70-99 mg/dl Estimated Average Glucose 105 mg/dl Hemoglobin A1c 5.3 4.5-5.6 % Calcium Level 8.6 8.5-10.1 mg/dl Total Bilirubin 0.4 0.2-1 mg/dl Direct Bilirubin 0.1 0-0.2 mg/dl Aspartate Amino Transf (AST/SGOT) 30 15-37 U/L Alanine Aminotransferase (ALT/SGPT) 41 12-78 U/L Alkaline Phosphatase 108 45-117 U/L Total Protein 6.8 6.4-8.2 gm/dl Albumin 3.1 3.4-5.0 gm/dl Assessment & Plan RUQ pain and tenderness that also involves lower chest wall with same degree of tenderness WBC again normal, LFT's today pending but previous normal Radiology findings of cholelithiasis but no cholecystitis For HIDA scan today
[2017-02-13 06:48] LABS: BUN/CREATININE RATIO 26.9 (10-20); CREATININE 0.45 mg/dl (0.60-1.20); POTASSIUM 3.5 mmol/L (3.5-5.1)
[2017-02-13 06:50] LABS: ALB/GLOB RATIO 0.9 (0.9-2); PHOSPHORUS 2.5 mg/dl (2.5-4.9)
[2017-02-13 07:00] LABS: CALCIUM 8.4 mg/dl (8.5-10.1)
[2017-02-13 07:23] VITALS: BP 154/84; PULSE 58; TEMP 36.5; O2SAT 97
[2017-02-13] MEDS: SODIUM CHLORIDE 0.9% 1000ML 1,000 ML IV SCH ×2 (07:30→16:55)
[2017-02-13] MEDS: MICONAZOLE NITRATE POWDER 43 GM EXT SCH ×2 (08:02→20:32)
[2017-02-13] MEDS ORDERED: NURSING VERBAL MED ORDER ONE ×2 (09:00→16:00)
[2017-02-13] MEDS ORDERED: ACETAMINOPHEN IV 1000MG/100ML IV ONE (09:15)
[2017-02-13] MEDS: PANTOprazole INJ 40 MG in SYRINGE 0 ML IV SCH (11:37)
--- NOTE | 2017-02-13 13:10 | DIAGNOSTIC IMAGING REPORT ---
NUCLEAR MEDICINE HEPATOBILIARY SCAN HISTORY: Pain. Nausea. RUQ abdominal pain, cholelithiasis COMPARISON: None. TECHNIQUE: Immediately following the intravenous administration of 5.415 mCi Tc-99m Choletec, dynamic anterior abdominal imaging was performed. FINDINGS: Uniform hepatic tracer accumulation is shown. Prompt intrahepatic biliary excretion is seen. The gallbladder, common bile duct, and small bowel are all visualized by 25 minutes minutes. This appearance represents the normal sequence of biliary excretion. IMPRESSION: No evidence for cystic duct obstruction. Normal study Electronically signed by: Walt Kerr M.D. 02/13/2017 1:09 PM Dictated Date/Time: 02/13/2017 1:08 PM
--- NOTE | 2017-02-13 14:03 | Progress Note ---
Subjective Date of Service: February 13, 2017. Subjective Pt evaluation today including: conversation w/ patient, physical exam, chart review, lab review, review of studies, review of inpatient medication list Resting comfortably in bed Due for HIDA scan Wanting something to eat No acute events overnight Problem List Medical Problems: (1) Right upper quadrant abdominal pain Status: Acute (2) Sacral fracture Status: Acute Review of Systems Constitutional: No chills, No fever Respiratory: No cough, No shortness of breath, No sputum, No wheezing Cardiac: No chest pain, No orthopnea Abdomen: + nausea, + pain, No diarrhea, No vomiting Musculoskeletal: No joint pain, No muscle pain Female : No dysuria, No urinary frequency Objective Vital Signs Date Time Temp Pulse Resp B/P Pulse Ox O2 Delivery O2 Flow Rate FiO2 02/13/17 07:30 Room Air 02/13/17 07:23 36.5 58 16 154/84 97 Nasal Cannula 2.0 02/12/17 23:30 Nasal Cannula 2.0 02/12/17 23:29 36.7 56 16 143/72 96 Nasal Cannula 2.0 02/12/17 15:46 Nasal Cannula 2.0 02/12/17 15:27 36.6 48 16 125/72 94 Nasal Cannula 2.0 Physical Exam General Appearance: WD/WN, + mild distress Neck: supple, no adenopathy Respiratory/Chest: lungs clear, normal breath sounds Cardiovascular: no edema, no gallop Abdomen: normal bowel sounds, soft Neurologic/Psychiatric: alert, oriented x 3 Laboratory Results Last 24 Hours Test 02/13/17 05:45 White Blood Count 6.09 K/uL Red Blood Count 4.17 M/uL Hemoglobin 12.2 g/dL Hematocrit 39.1 % Mean Corpuscular Volume 93.8 fL Mean Corpuscular Hemoglobin 29.3 pg Mean Corpuscular Hemoglobin Concent 31.2 g/dl Platelet Count 231 K/uL Mean Platelet Volume 9.7 fL Neutrophils (%) (Auto) 57.6 % Lymphocytes (%) (Auto) 33.5 % Monocytes (%) (Auto) 6.6 % Eosinophils (%) (Auto) 2.0 % Basophils (%) (Auto) 0.3 % Neutrophils # (Auto) 3.51 K/uL Lymphocytes # (Auto) 2.04 K/uL Monocytes # (Auto) 0.40 K/uL Eosinophils # (Auto) 0.12 K/uL Basophils # (Auto) 0.02 K/uL RDW Standard Deviation 43.2 fL RDW Coefficient of Variation 12.7 % Immature Granulocyte % (Auto) 0.0 % Immature Granulocyte # (Auto) 0.00 K/uL Sodium Level 143 mmol/L Potassium Level 3.5 mmol/L Chloride Level 110 mmol/L Carbon Dioxide Level 26 mmol/L Anion Gap 7.0 mmol/L Blood Urea Nitrogen 12 mg/dl Creatinine 0.45 mg/dl Est Creatinine Clear Calc Drug Dose 137.8 ml/min Estimated GFR () 125.3 Estimated GFR (Non- 108.1 BUN/Creatinine Ratio 26.9 Random Glucose 93 mg/dl Calcium Level 8.4 mg/dl Phosphorus Level 2.5 mg/dl Magnesium Level 2.0 mg/dl Total Bilirubin 0.5 mg/dl Aspartate Amino Transf (AST/SGOT) 33 U/L Alanine Aminotransferase (ALT/SGPT) 42 U/L Alkaline Phosphatase 97 U/L Total Protein 6.1 gm/dl Albumin 2.9 gm/dl Globulin 3.2 gm/dl Albumin/Globulin Ratio 0.9 Assessment and Plan 61 year old female with nausea, vomiting and RUQ abdominal pain. Cholelithiasis on US with CBD dilation to 7mm but no acute cholecystitis. RUQ/epigastric abdominal pain cholelithiasis with dilated common bile dust S/P fall and S2 acute fractures and acute nondisplaced fracture within the right sacral wing (likely osteoporitic fracture due to fall from ground level ) Plan - Zofran/pantoprazole -Consult Dr. Bae for possible acute cholecystitis acetaminophen +/- morphine for pain - consult orthopedic for clearance for PT/OT - NPO except ice chips - HIDA scan 02/13 Full Code VTE Prophylaxis - will hold off chemical prophylaxis currently in case her pain worsens and she requires surgery. - SCDs
[2017-02-13] MEDS ORDERED: SODIUM CHLORIDE 0.9% 1000ML 1,000 ML IV SCH (15:07)
--- NOTE | 2017-02-13 15:07 | [facility] Post Operative Brief Note ---
Immediate Operative Summary Operative Date February 13, 2017. Pre-Operative Diagnosis Gallbladder sludge Cholelithiasis Chronic cholecystitis Post-Operative Diagnosis Same Procedure(s) Performed Laparoscopic Xuan Surgeon Walt Bae MD Vinyl Hanger Surgeon(s) April Pérez PA-C Estimated Blood Loss 10 cc Findings See dictation Specimens Gallbladder and contents Drains None Anesthesia General Complication(s) None Disposition Recovery Room / PACU
--- NOTE | 2017-02-13 15:11 | Discharge Instructions ---
Discharge Instructions Date of Service February 13, 2017. Admission Reason for Admission: Nausea/Vomiting, Ruq Pain Discharge Discharge Diagnosis / Problem: Same Discharge Goals Goal(s): Decrease discomfort Activity Recommendations Activity Limitations: per Instructions/Follow-up section Lifting Limitations: no more than 10 pounds (for 2 weeks) Shower/Bathe: tomorrow (Shower only) . Instructions / Follow-Up Instructions / Follow-Up Post-Surgical ~ Discharge Instructions Activity Recommendations: - lifting limitation: (10 pounds for 2 weeks), - exercise/sex/sports limit: (nonstrenuous for 2 weeks), - driving or machine use limit: (none for 1 week), - Shower/bathe limit: (may shower beginning tomorrow) Diet: - Resume previous diet SPECIAL CARE INSTRUCTIONS: - May shower in 24 hours. Let water run over area and pat dry. - Leave steri strips on for one week. - Call the surgeon's office with any questions or concerns - - (ex. temperature higher than 101 degrees F, excessive bleeding or pain). MEDICATIONS: - Resume previous medications unless instructed otherwise by your surgeon. - Ibuprofen 600 mg every 6 hours with food - Percocet 1 every 4 hours, as needed for pain FOLLOW UP VISIT: - If not already scheduled, please call the office to schedule a two week follow-up appointment. Office number Current Hospital Diet Patient's current hospital diet: Clear Liquid Diet Discharge Diet Recommended Diet: Regular Diet Procedures Procedures Performed: Laparoscopic Xuan Pending Studies Studies pending at discharge: no Laboratory Results Hemoglobin A1c Test 02/12/17 07:50 Range/Units Estimated Average Glucose 105 mg/dl Hemoglobin A1c 5.3 4.5-5.6 % Medical Emergencies . Who to Call and When: Medical Emergencies: If at any time you feel your situation is an emergency, please call 911 immediately. . Non-Emergent Contact Non-Emergency issues call your: Primary Care Provider, Surgeon Call Non-Emergent contact if: your pain is worsening, wound has increased redness, wound has increased pain . "Provider Documentation" section prepared by Walt Bae. . VTE Core Measure Inpt VTE Proph given/why not?: Treatment not indicated
[2017-02-13] MEDS ORDERED: ONDANSETRON INJ 2 MG/ML 2 ML VIAL IV PRN (15:15)
[2017-02-13] MEDS ORDERED: OXYCODONE/ACETAMINOPHEN 5-325 TAB PO PRN (15:15)
[2017-02-13] MEDS ORDERED: MoRPHine SULFATE 4 MG/ML 1 ML CARP\\VIAL IV PRN (15:15)
[2017-02-13 15:21] VITALS: BP 163/84; PULSE 51; TEMP 36.7; O2SAT 97
--- NOTE | 2017-02-13 17:17 | Orthopedic Progress Note ---
Orthopedic Progress Note Date of Service February 13, 2017. Subjective Post OP Day: HD #2 Additional Notes: LBP Objective calves soft nontender, A&O x3 Right lower extremity has very limited motion with flexion and extension of toes secondarily to cerebellar ataxia. BLE no pain with log roll of hips. BCR < 2 sec. Sensation to LT intact. Painless gentle ROM of hips and knees. LLE: + TTP medial joint line L knee. - effusion, ROM 0-100 degrees. Stable ligaments. Date Time Temp Pulse Resp B/P Pulse Ox O2 Delivery O2 Flow Rate FiO2 02/13/17 15:21 36.7 51 16 163/84 97 Nasal Cannula 2.0 02/13/17 07:30 Room Air 02/13/17 07:23 36.5 58 16 154/84 97 Nasal Cannula 2.0 02/12/17 23:30 Nasal Cannula 2.0 02/12/17 23:29 36.7 56 16 143/72 96 Nasal Cannula 2.0 Laboratory Results 24 Hours: Test 02/13/17 05:45 White Blood Count 6.09 K/uL Red Blood Count 4.17 M/uL Hemoglobin 12.2 g/dL Hematocrit 39.1 % Mean Corpuscular Volume 93.8 fL Mean Corpuscular Hemoglobin 29.3 pg Mean Corpuscular Hemoglobin Concent 31.2 g/dl Platelet Count 231 K/uL Mean Platelet Volume 9.7 fL Neutrophils (%) (Auto) 57.6 % Lymphocytes (%) (Auto) 33.5 % Monocytes (%) (Auto) 6.6 % Eosinophils (%) (Auto) 2.0 % Basophils (%) (Auto) 0.3 % Neutrophils # (Auto) 3.51 K/uL Lymphocytes # (Auto) 2.04 K/uL Monocytes # (Auto) 0.40 K/uL Eosinophils # (Auto) 0.12 K/uL Basophils # (Auto) 0.02 K/uL Additional Notes: RADIOGRAPHS: Left knee no acute fracture or dislocation. Mild medial joint space narrowing. Assessment & Plan Assessment: Non-displaced right sacral fracture. Left knee OA. Plan: Symptomatic treatment with pain control, ice, rest. PT/OT Maybe WBAT, will likely need a walker and assistance with ambulation. Continue care per primary service. Can follow up after discharge as an outpatient in 2 weeks. Please call [phone] for an appointment at [facility]. Please recall if any other orthopaedic issues should arise.
[2017-02-13 23:23] VITALS: BP 156/81; PULSE 62; TEMP 36.7; O2SAT 96
[2017-02-14] MEDS: SODIUM CHLORIDE 0.9% 1000ML 1,000 ML IV SCH ×3 (00:23→17:48)
[2017-02-14] MEDS: MoRPHine SULFATE 2 MG/ML CARP IV PRN ×7 (01:06→16:35)
--- NOTE | 2017-02-14 06:10 | GASTROENTEROLOGY PROGRESS NOTE ---
DATE: 02/13/2017 The patient continues to experience upper abdominal pain, although by the patient's assessment, the pain, although remaining in the upper abdomen, tends to be moving across the upper abdomen initially on the right side, now more epigastric and left upper quadrant. The patient did undergo imaging study today by HIDA scan and this revealed no evidence for acute cholecystitis. Although there were gallstones, there were no other features to suggest an inflamed gallbladder on ultrasound, thickening or bile duct distortion. Liver function tests on admission were essentially all normal. The patient does use an occasional NSAID such as Advil but perhaps once or twice monthly. She has not had any recent upper endoscopic assessments by her recollection. The patient reported that although cholecystectomy was anticipated, this was not performed. REVIEW OF SYSTEMS: Otherwise noncontributory based on 14-point exam except for mentioned above. She denies any weight loss, hematemesis, coffee-ground emesis, nausea, vomiting. PHYSICAL EXAMINATION: VITAL SIGNS: Today, blood pressure is 163/84, respirations 16, temperature 36.7, heart rate 51. She is 97% on 2 liters nasal cannula. GENERAL: The patient is awake, alert and oriented x3, resting comfortably in bed, accompanied by her . HEENT: The oral mucosa is moist. Sclerae anicteric, conjunctivae moist. HEART: Normal S1, S2. LUNGS: Overall clear to auscultation. ABDOMEN: Soft. Moderately tender with palpation along the right and left costal margins, this was reproducible. Pain over the abdomen proper. Did not reveal significant abdominal pain on palpation. There is no evidence of rebound or guarding. EXTREMITIES: Without clubbing or cyanosis. There is trace edema bilaterally. There are no abdominal bruits. RECTAL: Deferred. IMPRESSION: The patient's pain symptoms are of unclear origin. A biliary workup has been essentially unrevealing except for the presence of gallstones. The patient did have a fall a couple weeks ago and in the past has fallen and I question whether some of this discomfort may be originating from a skeletal muscular origin, particularly with the tenderness elicited with palpation along the costal margins. However, she has not had an upper endoscopy and seems to recall a remote history of peptic ulcer disease. She has occasionally used NSAIDs in the past, although does not report a routine use of them. I believe it is reasonable to consider an upper endoscopy and we will plan to make the patient n.p.o. after midnight except medications for tomorrow. This will be performed by Dr. Monique. If this is unrevealing, then I believe therapy aimed at costal tenderness may be prudent. Application of moist heat may be helpful intermittently throughout the day. Tylenol is acceptable. All questions answered.
[2017-02-14 07:11] VITALS: BP 181/81; PULSE 61; TEMP 36.7; O2SAT 94
[2017-02-14] MEDS: MICONAZOLE NITRATE POWDER 43 GM EXT SCH ×2 (07:25→21:03)
--- NOTE | 2017-02-14 07:45 | Surgery Progress Note ---
Surgery Progress Note Date of Service February 14, 2017. Subjective Post OP Day: HD # 2 + diet (tolerated clear liquids), No nausea, No vomiting not feeling well, still having pain in the right upper abdomen/lower chest wall Did not get any nausea after clear liquids HIDA scan normal, no evidence of cystic duct obstruction low back pain (tailbone) Objective Vital Signs: Date Time Temp Pulse Resp B/P Pulse Ox O2 Delivery O2 Flow Rate FiO2 02/14/17 07:11 36.7 61 15 181/81 94 Nasal Cannula 2.0 02/13/17 23:23 36.7 62 16 156/81 96 Nasal Cannula 2.0 02/13/17 20:20 Room Air 02/13/17 15:21 36.7 51 16 163/84 97 Nasal Cannula 2.0 General Appearance: WD/WN, no apparent distress Head: normocephalic, atraumatic Neck: trachea midline Respiratory/Chest: no respiratory distress, no accessory muscle use Abdomen: non distended, soft, no organomegaly, + guarding, + tenderness (in RUQ near the costal margin, very tender to light palpation just on the rib cage) , + pertinent finding (there is an erythematous rash of the RUQ stops just before midline) Assessment & Plan RUQ abdominal pain Right Costal margin Pain Possible Shingles? - vitals stable - no leukocytosis - HIDA scan normal, US just showing cholelithiasis no cholecystitis - LFTs within normal limits Plan: Patient continues to have RUQ abdominal pain and right costal margin pain. On examination today she is very tender with the lightest touch of the skin. Some erythema noted and stops just before midline. HIDA scan normal with no evidence of cystic duct obstruction and ultrasound shows cholelithiasis however no evidence of cholecystitis. Labs have remained normal including no leukocytosis or elevated total bilirubin or LFTS. Believe her pain may either be related to her fall last week or possible Shingles? GI has seen patient and recommended upper endoscopy to rule out peptic ulcer disease. At this time do not believe there is any surgical indication for laparoscopic cholecystectomy. Continue clear liquids and management per hospitalist service. Will continue to follow Dr. Bae has seen and examined patient, agrees with above
[2017-02-14 08:56] VITALS: BP 145/77; PULSE 60
[2017-02-14 09:23] VITALS: BP 132/60; PULSE 61; O2SAT 96
[2017-02-14] MEDS: PANTOprazole INJ 40 MG in SYRINGE 0 ML IV SCH (10:48)
--- NOTE | 2017-02-14 12:18 | Endo History and Physical ---
History & Physical Date of Service: February 14, 2017. Chief Complaint: RUQ pain Referring Physician: Dr. Landis History of Present Illness For EGD Past Surgical History Hx Cardiac Surgery: No Hx Abdominal Surgery: Yes (Partial hysterectomy ) Hx Post-Op Nausea and Vomiting: No Hx Cancer Surgery: No Hx Thoracic Surgery: No Hx Orthopedic: No Hx Urinary Tract Surgery: No Social History Smoking Status: Former Smoker Hx Substance Use: No Hx Alcohol Use: No Allergies Coded Allergies: Amoxicillin (Verified Allergy, Intermediate, RASH ALL OVER BODY, 02/11/17) Clavulanic Acid (Verified Allergy, Intermediate, RASH ALL OVER BODY, ) Oat Rolled (Verified Allergy, Intermediate, RASH, 02/11/17) Current Medications Reported Home Medications Medications Dose Route/Sig Max Daily Dose Days Date Category Dose Instructions Ventolin Hfa (Albuterol) 200 Puffs/15537 Mcg Aers 1-2 Puffs INH Q6H PRN 02/11/17 Reported Lexapro (Escitalopram Oxalate) 10 Mg Tab 10 Mg PO QAM 02/11/17 Reported Multivitamin Adults 50+ (Multiple Vitamins W/ Minerals) 1 Tab Tab 1 Tab PO QAM 02/11/17 Reported Prilosec (Omeprazole) 20 Mg Cap 20 Mg PO QAM 02/11/17 Reported Calcium/Vitamin D3 (Calcium Carbonate-Cholecalcife) 1 Cap Cap 1 Cap PO QAM 02/11/17 Reported Percocet 5MG/325MG (Oxycodone/Acetaminophen) Tab 1 Tablet PO Q4H PRN 02/11/17 Reported NOT TO EXCEED 4 GRAMS ACETAMINOPHEN IN 24 HOURS. Mysoline (Primidone) 50 Mg Tab 100 Mg PO HS 02/11/17 Reported Vital Signs Weight (Kilograms): 98.000 Height (Feet): 5 Height (Inches): 0.00 Date Time Temp Pulse Resp B/P Pulse Ox O2 Delivery O2 Flow Rate FiO2 02/14/17 12:02 37.3 84 20 148/62 98 Nasal Cannula 2 02/14/17 09:23 61 96 02/14/17 08:56 60 145/77 02/14/17 07:15 Nasal Cannula 2.0 02/14/17 07:11 36.7 61 15 181/81 94 Nasal Cannula 2.0 02/13/17 23:23 36.7 62 16 156/81 96 Nasal Cannula 2.0 02/13/17 20:20 Room Air 02/13/17 15:21 36.7 51 16 163/84 97 Nasal Cannula 2.0 Physical Exam General Appearance: + obese Respiratory/Chest: Respiratory effort: no dyspnea Cardiovascular: Heart Auscultation: RRR Abdomen: Inspection & Palpation: RUQ tenderness Assessment and Plan RUQ pain for EGD
[2017-02-14] MEDS ORDERED: PROPOFOL IV EMULSION 10 MG/ML 20 ML VIAL IV ONE (12:58)
[2017-02-14] MEDS ORDERED: LIDOCAINE HCL 2% 2 ML VIAL (20MG/ML) ONE (12:58)
--- NOTE | 2017-02-14 13:15 | Discharge Instructions ---
Endoscopy Patient Instructions Date / Procedure(s) Performed February 14, 2017. EGD Allergy Information Coded Allergies: Amoxicillin (Verified Allergy, Intermediate, RASH ALL OVER BODY, 02/11/17) Clavulanic Acid (Verified Allergy, Intermediate, RASH ALL OVER BODY, ) Oat Rolled (Verified Allergy, Intermediate, RASH, 02/11/17) Discharge Date / Findings February 14, 2017. Normal EGD Medication Instructions Restart Stopped Medication(s): resume meds Current Inpatient Medications Medications (Trade) Dose Ordered Sig/Rachana Route Start Time Stop Time Status Last Admin Dose Admin Ioversol (Optiray 320) 100 ml UD PRN IV 02/12/17 00:15 02/16/17 00:14 Miscellaneous (Iv Fluids Completed) 1 ea PRN PRN N/A 02/12/17 05:00 02/12/18 04:59 Miconazole Nitrate (Desenex Powder) 1 appln PRN PRN EXT 02/12/17 05:45 03/14/17 05:44 02/12/17 09:31 1 APPLN Ondansetron HCl 4 mg 4 mg Q4H PRN IV 02/12/17 07:00 03/14/17 06:59 Pantoprazole Sodium 40 mg/ Syringe 10 ml @ 5 mls/min DAILY@11 IV 02/13/17 11:00 03/15/17 10:59 02/14/17 10:48 5 MLS/MIN Sodium Chloride (Nss 1000ml) 1,000 ml @ 125 mls/hr Q8H IV 02/12/17 07:30 03/14/17 07:29 02/14/17 07:23 125 MLS/HR Miconazole Nitrate (Desenex Powder) 1 appln BID EXT 02/12/17 12:00 03/14/17 11:59 02/14/17 07:25 1 APPLN Ergocalciferol (Vitamin D Cap) 50,000 interunit We@0900 PO 02/12/17 16:00 03/14/17 15:59 02/12/17 16:36 50,000 INTERUNIT Morphine Sulfate (MoRPHine SULFATE INJ) 2 mg Q2H PRN IV 02/14/17 00:40 02/28/17 00:39 02/14/17 10:48 2 MG Provider Instructions Activity Restrictions - No exercising or heavy lifting for 24 hours. - Do not drink alcohol the day of the procedure. - Do not drive a car or operate machinery until the day after the procedure. - Do not make any important decisions or sign important papers in 24 hours after the procedure. Following Day: - Return to full activity which may include returning to work/school. Diet Start your diet with liquids and light foods (jello, soup, juice, toast). Then eat your usual diet if not nauseated. Treatment For Common After Affects For mild abdominal pain, bloating, or excessive gas: - Rest - Eat lightly - Lie on right side Follow-Up Information Follow-up with as scheduled Anesthesia Information What You Should Know You have had a procedure that required some medicine to reduce anxiety and discomfort. This treatment is called moderate sedation. After receiving the treatment, you may be sleepy, but you will be able to breathe on your own. The effects of the treatment may last for several hours. Follow these instructions along with Activity/Diet recommendations noted above: * Do NOT do anything where dizziness or clumsiness would be dangerous. * Rest quietly at home today, then you can be up and about tomorrow. * Have a responsible person stay with you the rest of today. * You may have had an I.V. today. If so, you may take the dressing off later today. Recommendations Call your doctor if: * Trouble breathing * Continuous vomiting for more than 24 hours * Temperature above 101 degrees * Severe abdominal pain or bloating * Pain not relieved by pain medicine ordered * There is increased drainage or redness from any incision * A large amount of rectal bleeding greater than 2-3 tablespoons. (If you had a polyp/s removed or have hemorrhoids, a small amount of blood - from the rectum is to be expected.) * You have any unanswered questions or concerns. IN THE EVENT OF A SERIOUS EMERGENCY, GO TO THE NEAREST EMERGENCY ROOM Your discharge instructions were prepared by provider Robles Monique. Patient Instructions Signature Page Ashley Shea Patient (or Guardian) Signature/Date: I have read and understand the instructions given to me by my caregivers. Caregiver/RN/Doctor Signature/Date: The above-named patient and/or guardian has received patient instructions on this date. + Original Patient Signature Page (only) stays with chart. Please make copy for patient.
--- NOTE | 2017-02-14 13:17 | GI REPORT ---
Procedure Date: 02/14/2017 1:04 PM Procedure: Upper GI endoscopy Indications: Abdominal pain in the right upper quadrant Medicines: Propofol total dose 80 mg IV, Lidocaine 40 mg IV Complications: No immediate complications. Estimated Blood Loss: Estimated blood loss: none. Procedure: Pre-Anesthesia Assessment: - Prior to the procedure, a History and Physical was performed, and patient medications, allergies and sensitivities were reviewed. The patient's tolerance of previous anesthesia was reviewed. - The risks and benefits of the procedure and the sedation options and risks were discussed with the patient. All questions were answered and informed consent was obtained. After obtaining informed consent, the endoscope was passed under direct vision. Throughout the procedure, the patient's blood pressure, pulse, and oxygen saturations were monitored continuously. The scope was introduced through the mouth, and advanced to the second part of duodenum. The upper GI endoscopy was accomplished without difficulty. The patient tolerated the procedure well. Findings: The esophagus was normal. The stomach was normal. The examined duodenum was normal. Impression: - Normal esophagus. - Normal stomach. - Normal examined duodenum. - No specimens collected. Recommendation: - Return patient to [facility] for ongoing care. Robles Monique M.D. Robles Monique MD 02/14/2017 1:17:21 PM This report has been signed electronically. Note Initiated On: 02/14/2017 1:04 PM I attest to the content of the Intraoperative Record and orders documented therein, exceptions below
--- NOTE | 2017-02-14 13:35 | Consultant Recommendations ---
Junior Linux Administrator Recommendations Date of Service February 14, 2017. Junior Linux Administrator Recommendations [facility]-Dr. Mehul Christian MD -Recommedations Non-displaced right sacral fracture. Left knee OA. Plan: Symptomatic treatment with pain control, ice, rest. PT/OT Maybe WBAT, will likely need a walker and assistance with ambulation. If pain too intense with weightbearing, may be bed to chair with assist as tolerated and increase activity accordingly. Continue care per primary service. Can follow up after discharge as an outpatient in [address] Christian from [facility]. Please call [phone] for an appointment at [facility]. Please recall if any other orthopaedic issues should arise.
--- NOTE | 2017-02-14 13:36 | Anesthesiology Progress Note ---
Anesthesia Post Op Note Date & Time February 14, 2017 at 13:36 Vital Signs Pain Intensity: 2 Vital Signs Past 12 Hours Date Time Temp Pulse Resp B/P Pulse Ox O2 Delivery O2 Flow Rate FiO2 02/14/17 13:34 60 20 188/78 98 Room Air 02/14/17 13:21 36.9 62 20 193/75 98 Nasal Cannula 2 02/14/17 12:02 37.3 84 20 148/62 98 Nasal Cannula 2 02/14/17 09:23 61 96 02/14/17 08:56 60 145/77 02/14/17 07:15 Nasal Cannula 2.0 02/14/17 07:11 36.7 61 15 181/81 94 Nasal Cannula 2.0 Notes Mental Status: alert / awake / arousable, participated in evaluation Pt Amnestic to Procedure: Yes Nausea / Vomiting: adequately controlled Pain: adequately controlled Airway Patency, RR, SpO2: stable & adequate BP & HR: stable & adequate Hydration State: stable & adequate Anesthetic Complications: no major complications apparent
[2017-02-14 14:06] VITALS: BP 181/81; PULSE 73; TEMP 36.9; O2SAT 95
[2017-02-14 14:39] VITALS: BP 149/79; PULSE 60
[2017-02-14 15:38] VITALS: BP 148/76; PULSE 59; TEMP 36.7; O2SAT 95
[2017-02-14] MEDS ORDERED: LIDODERM (LIDOCAINE) PATCH 5% TD ONE (16:34)
--- NOTE | 2017-02-14 16:36 | Progress Note ---
Subjective Date of Service: February 14, 2017. Subjective Pt evaluation today including: conversation w/ patient, physical exam, chart review, lab review, review of studies, review of inpatient medication list Problem List Medical Problems: (1) Right upper quadrant abdominal pain Status: Acute (2) Sacral fracture Status: Acute Review of Systems Constitutional: No chills, No fever Respiratory: No cough, No dyspnea on exertion, No shortness of breath, No sputum, No wheezing Cardiac: No chest pain, No orthopnea Abdomen: + pain, No constipation, No diarrhea, No nausea, No vomiting Musculoskeletal: No joint pain, No muscle pain Female : No dysuria, No urinary frequency Objective Vital Signs Date Time Temp Pulse Resp B/P Pulse Ox O2 Delivery O2 Flow Rate FiO2 02/14/17 15:38 36.7 59 18 148/76 95 Nasal Cannula 2.0 02/14/17 14:39 60 149/79 02/14/17 14:06 36.9 73 18 181/81 95 Nasal Cannula 2.0 02/14/17 13:50 69 20 183/70 95 Room Air 02/14/17 13:34 60 20 188/78 98 Room Air 02/14/17 13:21 36.9 62 20 193/75 98 Nasal Cannula 2 02/14/17 12:02 37.3 84 20 148/62 98 Nasal Cannula 2 02/14/17 09:23 61 96 02/14/17 08:56 60 145/77 02/14/17 07:15 Nasal Cannula 2.0 02/14/17 07:11 36.7 61 15 181/81 94 Nasal Cannula 2.0 02/13/17 23:23 36.7 62 16 156/81 96 Nasal Cannula 2.0 02/13/17 20:20 Room Air Physical Exam General Appearance: WD/WN, no apparent distress Neck: supple, no adenopathy Respiratory/Chest: lungs clear, normal breath sounds Cardiovascular: no edema, no gallop Abdomen: non tender, soft Neurologic/Psychiatric: alert, oriented x 3 Assessment and Plan 61 year old female with nausea, vomiting and RUQ abdominal pain. Cholelithiasis on US with CBD dilation to 7mm but no acute cholecystitis. RUQ/epigastric abdominal pain cholelithiasis with dilated common bile dust S/P fall and S2 acute fractures and acute nondisplaced fracture within the right sacral wing (likely osteoporitic fracture due to fall from ground level ) Plan - Zofran/pantoprazole -Consult gen surg acetaminophen +/- morphine for pain - consult orthopedic for clearance for PT/OT - HIDA scan 02/13 unremarkable - EGD 02/14 unremarkable - Will tx for musculoskeletal pain, lidoderm patch added Full Code VTE Prophylaxis - will hold off chemical prophylaxis currently in case her pain worsens and she requires surgery. - SCDs
[2017-02-15] MEDS: SODIUM CHLORIDE 0.9% 1000ML 1,000 ML IV SCH ×4 (00:06→23:51)
[2017-02-15 00:09] VITALS: BP 151/73; PULSE 70; TEMP 37.1; O2SAT 91
[2017-02-15] MEDS: MoRPHine SULFATE 2 MG/ML CARP IV PRN ×2 (01:20→07:36)
[2017-02-15 07:26] VITALS: BP 178/72; PULSE 63; TEMP 36.7; O2SAT 92
[2017-02-15 08:05] VITALS: BP 158/79
[2017-02-15] MEDS: LIDODERM (LIDOCAINE) PATCH 5% TD SCH (09:06)
[2017-02-15] MEDS: MICONAZOLE NITRATE POWDER 43 GM EXT SCH ×2 (09:07→20:28)
--- NOTE | 2017-02-15 10:51 | GASTROINTESTINAL CONSULTATION ---
DATE OF CONSULTATION: 02/15/2017 DATE OF CONSULTATION: 02/15/2017. HISTORY OF PRESENT ILLNESS: The patient underwent upper endoscopy yesterday which was overall unremarkable. She continues to have upper abdominal pain along the rib margin. She is tolerating food well. Her biggest complaint is her tailbone discomfort. HOME MEDICATIONS: Include lidocaine patch, morphine, pantoprazole, vitamin D, Zofran. REVIEW OF SYSTEMS: Otherwise noncontributory based on 14-point exam except for mentioned above. The patient reports having had a colonoscopy which was unremarkable approximately 1 year ago. PHYSICAL EXAMINATION: VITAL SIGNS: Today, the patient is afebrile 36.7, blood pressure 178/72, 92% on 2 liters, respirations 20. GENERAL: This patient is awake, alert and oriented x3. She is resting in bed comfortably and eating. HEAD, EYES, EARS, NOSE, AND THROAT: Oral mucosa moist. HEART: Normal S1, S2. LUNGS: Clear to auscultation without rales, rhonchi or wheezes. ABDOMEN: Soft, tender along the right and left costal margins without rebound or guarding. There are normal bowel sounds. There is no significant tenderness over the abdominal cavity. EXTREMITIES: With trace edema. RECTAL EXAMINATION: Deferred. I suspect that the patient's abdominal pain may reflect pain of skeletal muscular origin given her recent fall a couple weeks ago. It may be reasonable to consider a short course of Tylenol regular strength tablets 2-3 times daily routinely for 5-7 days to see if this can help minimize her discomfort and avoid NSAIDs. In addition, application of moist heat several times a day throughout the day may help reduce her symptoms. This should not be left on the body for extended periods of time and she should not sleep with the heating pad. Will sign off at this time. Please call if you have any questions. Thank you for allowing me to participate in this patient's care. Sincerely.
--- NOTE | 2017-02-15 11:18 | Surgery Progress Note ---
Surgery Progress Note Date of Service February 15, 2017. Subjective feeling ok. no major change. most of her pain currently is along her right costal margin. Objective Vital Signs: Date Time Temp Pulse Resp B/P Pulse Ox O2 Delivery O2 Flow Rate FiO2 02/15/17 07:26 36.7 63 20 178/72 92 Nasal Cannula 2.0 02/15/17 00:09 37.1 70 16 151/73 91 Nasal Cannula 2.0 02/15/17 00:00 Nasal Cannula 2.0 02/14/17 16:00 Nasal Cannula 2.0 02/14/17 15:38 36.7 59 18 148/76 95 Nasal Cannula 2.0 02/14/17 14:39 60 149/79 02/14/17 14:06 36.9 73 18 181/81 95 Nasal Cannula 2.0 02/14/17 13:50 69 20 183/70 95 Room Air 02/14/17 13:34 60 20 188/78 98 Room Air 02/14/17 13:21 36.9 62 20 193/75 98 Nasal Cannula 2 02/14/17 12:02 37.3 84 20 148/62 98 Nasal Cannula 2 General Appearance: no apparent distress Head: normocephalic, atraumatic Abdomen: non distended, soft, + pertinent finding (+tenderness primarily along right ribs/costal margin) Assessment & Plan RUQ pain likely secondary to fall gallbladder/stones not likely contributory. wbc normal/hida negative no surgical indications at this time will s/o. please call if we can help. thanks.
[2017-02-15] MEDS: PANTOprazole INJ 40 MG in SYRINGE 0 ML IV SCH (12:15)
--- NOTE | 2017-02-15 15:28 | Progress Note ---
Subjective Date of Service: February 15, 2017. Subjective Pt evaluation today including: conversation w/ patient, conversation w/ family , physical exam, chart review, lab review, review of studies, review of inpatient medication list Pain improved with pain meds No N/V No fevers or chills Problem List Medical Problems: (1) Right upper quadrant abdominal pain Status: Acute (2) Sacral fracture Status: Acute Review of Systems Constitutional: No chills, No fever Respiratory: No cough, No dyspnea on exertion, No shortness of breath, No sputum, No wheezing Cardiac: No chest pain, No orthopnea Abdomen: + pain, No constipation, No diarrhea, No nausea, No vomiting Musculoskeletal: No joint pain, No muscle pain Female : No dysuria, No urinary frequency Objective Vital Signs Date Time Temp Pulse Resp B/P Pulse Ox O2 Delivery O2 Flow Rate FiO2 02/15/17 08:05 158/79 02/15/17 07:40 Nasal Cannula 2.0 02/15/17 07:26 36.7 63 20 178/72 92 Nasal Cannula 2.0 02/15/17 00:09 37.1 70 16 151/73 91 Nasal Cannula 2.0 02/15/17 00:00 Nasal Cannula 2.0 02/14/17 16:00 Nasal Cannula 2.0 02/14/17 15:38 36.7 59 18 148/76 95 Nasal Cannula 2.0 Physical Exam General Appearance: WD/WN, no apparent distress Neck: supple, no adenopathy Respiratory/Chest: lungs clear, normal breath sounds Cardiovascular: no edema, no gallop Abdomen: non tender, soft Neurologic/Psychiatric: alert, normal mood/affect Assessment and Plan 61 year old female with nausea, vomiting and RUQ abdominal pain. Cholelithiasis on US with CBD dilation to 7mm but no acute cholecystitis. RUQ/epigastric abdominal pain cholelithiasis with dilated common bile dust S/P fall and S2 acute fractures and acute nondisplaced fracture within the right sacral wing (likely osteoporitic fracture due to fall from ground level ) Plan - Zofran/pantoprazole -Consult gen surg, appreciate recs lidoderm patch +/- norco for pain - consult orthopedic for clearance for PT/OT - HIDA scan 02/13 unremarkable - EGD 02/14 unremarkable - Will tx for musculoskeletal pain Full Code VTE Prophylaxis - will hold off chemical prophylaxis currently in case her pain worsens and she requires surgery. - SCDs
[2017-02-15 15:33] VITALS: BP 157/105; PULSE 64; TEMP 36.8; O2SAT 94
[2017-02-15 22:25] VITALS: BP 102/62; PULSE 149; TEMP 36.5; O2SAT 96
[2017-02-15 22:32] VITALS: BP 133/73; PULSE 70; TEMP 36.9; O2SAT 90
[2017-02-15] MEDS: HYDROCODONE/ACETAMINOPHEN 7.5/325MG TAB PO PRN (23:55)
[2017-02-16] MEDS: HYDROCODONE/ACETAMINOPHEN 7.5/325MG TAB PO PRN (04:56)
[2017-02-16] MEDS ORDERED: NURSING VERBAL MED ORDER ONE (05:45)
[2017-02-16] MEDS ORDERED: BISACODYL 10 MG SUPP PR ONE (06:15)
[2017-02-16] MEDS ORDERED: BISACODYL 10 MG SUPP PR PRN (06:15)
[2017-02-16] MEDS: SODIUM CHLORIDE 0.9% 1000ML 1,000 ML IV SCH (06:43)
[2017-02-16 08:00] VITALS: BP 130/74; PULSE 54; TEMP 36.7; O2SAT 96
[2017-02-16 08:20] VITALS: O2SAT 96
[2017-02-16] MEDS: LIDODERM (LIDOCAINE) PATCH 5% TD SCH (08:22)
[2017-02-16] MEDS: MICONAZOLE NITRATE POWDER 43 GM EXT SCH (08:22)
[2017-02-16] MEDS ORDERED: OXYC-57 PO (11:16)
[2017-02-16] MEDS ORDERED: LDDP5 TD (11:16)
--- NOTE | 2017-02-16 11:18 | Discharge Instructions ---
Discharge Instructions Date of Service February 16, 2017. Admission Reason for Admission: Nausea/Vomiting, Ruq Pain Discharge Discharge Diagnosis / Problem: Right upper quadrant pain, deconditioning Discharge Goals Goal(s): Decrease discomfort, Improve function, Increase independence, Improve disease control, Learn about illness, Diagnostic testing Activity Recommendations Activity Limitations: resume your previous activity Shower/Bathe: no limitations . Instructions / Follow-Up Instructions / Follow-Up Patient to be discharged to Rehab at [facility] Prescriptions provided for pain including percocet and lidoderm patch Please follow up with [facility] in 1-2 weeks Current Hospital Diet Patient's current hospital diet: Regular Diet Discharge Diet Recommended Diet: Regular Diet Procedures Procedures Performed: EGD Pending Studies Studies pending at discharge: no Laboratory Results Hemoglobin A1c Test 02/12/17 07:50 Range/Units Estimated Average Glucose 105 mg/dl Hemoglobin A1c 5.3 4.5-5.6 % Medical Emergencies . Who to Call and When: Medical Emergencies: If at any time you feel your situation is an emergency, please call 911 immediately. . Non-Emergent Contact Non-Emergency issues call your: Primary Care Provider Call Non-Emergent contact if: your pain is worsening . . "Provider Documentation" section prepared by Addi Cruz. . Bumper Machine Operator Recommendations Bumper Machine Operator Recommendations: [facility]-Dr. Mehul Christian MD -Recommedations Non-displaced right sacral fracture. Left knee OA. Plan: Symptomatic treatment with pain control, ice, rest. PT/OT Maybe WBAT, will likely need a walker and assistance with ambulation. If pain too intense with weightbearing, may be bed to chair with assist as tolerated and increase activity accordingly. Continue care per primary service. Can follow up after discharge as an outpatient in [address] Christian from [facility]. Please call [phone] for an appointment at [facility]. Please recall if any other orthopaedic issues should arise. VTE Core Measure Inpt VTE Proph given/why not?: Treatment not indicated
[2017-02-16] MEDS: PANTOprazole INJ 40 MG in SYRINGE 0 ML IV SCH (12:05)
[2017-02-16 12:35] VITALS: BP 130/74; PULSE 54; TEMP 36.7; O2SAT 96
--- NOTE | 2017-02-16 15:16 | Discharge Summary ---
Discharge Summary Date of Service February 16, 2017. Discharge Summary Admission Date: February 12, 2017 at 12:56 Discharge Date: February 13, 2017 Discharge Disposition: Rehab Principal Diagnosis: RUQ pain Consultations: Orthopedics GI Gen Surg Medication Reconciliation New Medications: Lidocaine (Lidocaine) 1 Patch Tdsy 1 PATCH TD QAM, #30 PATCH Continued Medications: Albuterol Hfa (Ventolin Hfa) 200 Puffs/37327 Mcg Aers 1-2 PUFFS INH Q6H PRN for Shortness of Breath, #1 INHALER Calcium Carbonate-Cholecalcife (Calcium/Vitamin D3) 1 Cap Cap 1 CAP PO QAM Escitalopram (Lexapro) 10 Mg Tab 10 MG PO QAM, TAB Multiple Vitamins W/ Minerals (Multivitamin Adults 50+) 1 Tab Tab 1 TAB PO QAM Omeprazole (Prilosec) 20 Mg Cap 20 MG PO QAM, CAP Oxycodone/Acetaminophen 5MG/325MG (Percocet 5MG/325MG) Tab 1 TABLET PO Q4H PRN for Pain, #30 TAB (This prescription has been renewed) NOT TO EXCEED 4 GRAMS ACETAMINOPHEN IN 24 HOURS. Primidone (Mysoline) 50 Mg Tab 100 MG PO HS Discharge Exam Review of Systems: Constitutional: No chills, No fever Respiratory: No cough, No sputum Cardiovascular: No chest pain, No orthopnea Abdomen: No diarrhea, No nausea, No pain, No vomiting Musculoskeletal: No joint pain, No muscle pain Genitourinary - Female: No dysuria, No urinary frequency, No urinary urgency Psychiatric: No anxiety, No depression symptoms Physical Exam: General Appearance: WD/WN, no apparent distress Respiratory/Chest: chest non-tender, lungs clear Cardiovascular: no edema, no gallop Abdomen / GI: non tender, soft Extremities: normal inspection, no calf tenderness Neurologic/Psychiatric: alert, oriented x 3 Hospital Course 61 year old female with nausea, vomiting and RUQ abdominal pain. Cholelithiasis on US with CBD dilation to 7mm but no acute cholecystitis. RUQ/epigastric abdominal pain cholelithiasis with dilated common bile dust S/P fall and S2 acute fractures and acute nondisplaced fracture within the right sacral wing (likely osteoporitic fracture due to fall from ground level ) Plan - Zofran/pantoprazole -Consult gen surg, appreciate recs, no intervention at this time as HIDA unremarkable lidoderm patch +/- norco for pain - consult orthopedic for clearance for PT/OT - EGD 02/14 unremarkable - Will tx for musculoskeletal pain, pain improved with norco and lidoderm patch Full Code VTE Prophylaxis - will hold off chemical prophylaxis currently in case her pain worsens and she requires surgery. - SCDs Total Time Spent: Greater than 30 minutes This includes examination of the patient, discharge planning, medication reconciliation, and communication with other providers. Discharge Instructions Please refer to the electronic Patient Visit Report (Discharge Instructions) for additional information. Additional Copies To [facility]
== END 2017-02-16 14:05 | DRG 445 ==
LOC: ENRESERVDT → ENRESERVTM → EDBD 21:55 → C.EDB 21:58 → C.MSW 02-12 04:28 → OBSVTOIN 02-12 12:56
PROVIDERS: ADMIT Hospitalist; ATTEND Hospitalist
PROC: 0DJ08ZZ Inspection of Upper Intestinal Tract, Via Natural or Artificial Opening Endoscopic (ICD-10-PCS; principal; 2017-02-14 11:57)
DX: K80.20 Calculus of gallbladder without cholecystitis without obstruction (principal); M80.08XA Age-related osteoporosis with current pathological fracture, vertebra(e), initial encounter for fracture; G11.9 Hereditary ataxia, unspecified; M17.12 Unilateral primary osteoarthritis, left knee; Z79.899 Other long term (current) drug therapy; Z87.891 Personal history of nicotine dependence; Z88.0 Allergy status to penicillin; Z88.8 Allergy status to other drugs, medicaments and biological substances; Z91.018 Allergy to other foods; Z90.711 Acquired absence of uterus with remaining cervical stump; W19.XXXA Unspecified fall, initial encounter; Y92.009 Unspecified place in unspecified non-institutional (private) residence as the place of occurrence of the external cause

== ENCOUNTER → 2017-04-03 | Outpatient (CLI) | payer OTHER ==
[~2017-04-03] MED LIST: CALCCAP14 PO; ESCI10TA17 PO; LDDP5 TD; MULT-916 PO; OMEP20CA9 PO; OXYC-57 PO; PRIM50TA29 PO; VNTHFA/IN INH
== END | disposition home or self-care (01) ==
LOC: C.RDSM 04-02 14:28
PROVIDERS: ATTEND Orthopaedic Surgery Sports Medicine
DX: R10.2 Pelvic and perineal pain (principal); M53.3 Sacrococcygeal disorders, not elsewhere classified

== ENCOUNTER → 2017-07-16 | Outpatient (CLI) | payer OTHER ==
[2017-07-16 12:12] LABS: BASO % 0.7 %; BASO ABS # 0.04 K/uL (0-0.2); COMPLETE YES; EOS % 3.9 %; IG% 0.2 %; LYMPH ABS # 1.89 K/uL (1.2-3.4); MEAN CELL VOLUME 92.4 fL (80-100); MEAN CORPUSCULAR HEMOGLOBIN 30.7 pg (25-34); MEAN CORPUSCULAR HGB CONC 33.3 g/dl (32-36); MEAN PLATELET VOLUME 9.8 fL (7.4-10.4); MONO % 6.8 %; NEUT % 56.4 %; PLATELET COUNT 262 K/uL (130-400); RED BLOOD COUNT 4.33 M/uL (4.2-5.4); WHITE BLOOD COUNT 5.91 K/uL (4.8-10.8)
[2017-07-16 12:51] LABS: ALB/GLOB RATIO 0.9 (0.9-2); ALKALINE PHOSPHATASE 74 U/L (45-117); ALT/SGPT 21 U/L (12-78); AST/SGOT 16 U/L (15-37); BLOOD UREA NITROGEN 14 mg/dl (7-18); BUN/CREATININE RATIO 25.7 (10-20); CALCIUM 8.7 mg/dl (8.5-10.1); CARBON DIOXIDE 28 mmol/L (21-32); CHLORIDE 106 mmol/L (98-107); CHOLESTEROL 175 mg/dl (0-200); CHOLESTEROL/HDL RATIO 3.4; CREATININE 0.53 mg/dl (0.60-1.20); GLUCOSE 88 mg/dl (70-99); HDL CHOLESTEROL 52 mg/dl; LDL CHOLESTEROL CALCULATED 94 mg/dl; SODIUM 141 mmol/L (136-145); TRIGLYCERIDES 145 mg/dl (0-150); VERY LOW DENSITY LIPOPROT CALC 29 mg/dl
== END | disposition home or self-care (01) ==
LOC: C.LAB 10:04
PROVIDERS: ATTEND Psychiatry & Neurology Neurology
DX: Z00.00 Encounter for general adult medical examination without abnormal findings (principal); I89.0 Lymphedema, not elsewhere classified; Z11.59 Encounter for screening for other viral diseases

== ENCOUNTER → 2017-07-18 | Outpatient (CLI) | payer OTHER ==
[~2017-07-18] MED LIST changes: +GADAVIST IV PRN
--- NOTE | 2017-07-18 17:10 | DIAGNOSTIC IMAGING REPORT ---
BRAIN COMBO CLINICAL HISTORY: 62 years-old Female presenting with ATAXIA,BRAIN STEM STROKE,DYSARTHRIA, decreased use of right side, slurred speech, foot drop, difficulty ambulating. TECHNIQUE: Multisequence, multiplanar MR imaging of the brain was performed before and after the administration of intravenous contrast. IV contrast: 10 mL of Gadavist. COMPARISON: None. FINDINGS: Ventricles and sulci normal in size. Periventricular white matter T2/FLAIR hyperintense, T1 hypointense focus adjacent to the trigone of the left lateral ventricle. No mass effect or midline shift. Facilitated diffusion noted in the paramedian high left frontal lobe with a focal T1 hypointense defect, primarily within the subcortical white matter. No restricted diffusion to suggest acute ischemia. No hemorrhage. No extra-axial fluid collection. T2 skull base flow voids preserved. No abnormal parenchymal enhancement. Bone marrow signal intensity within the calvarium within normal limits. IMPRESSION: 1. No acute intracranial pathology. No abnormal enhancement. 2. Two foci most consistent with old lacunar infarcts in the left frontal lobe. Electronically signed by: Kiet Mosley M.D. 07/18/2017 5:08 PM Dictated Date/Time: 07/18/2017 5:00 PM
== END | disposition home or self-care (01) ==
LOC: C.MRI 16:09
PROVIDERS: ATTEND Psychiatry & Neurology Neurology
DX: G81.91 Hemiplegia, unspecified affecting right dominant side (principal); G46.3 Brain stem stroke syndrome; R27.0 Ataxia, unspecified; R47.1 Dysarthria and anarthria

== ENCOUNTER → 2017-09-16 | Outpatient (CLI) | payer OTHER ==
[~2017-09-16] MED LIST changes: -GADAVIST IV PRN
--- NOTE | 2017-09-16 14:40 | DIAGNOSTIC IMAGING REPORT ---
RIGHT TIBIA AND FIBULA 2 VIEWS CLINICAL HISTORY: Right lower extremity cellulitis. FINDINGS: AP and lateral views of the right tibia and fibula are obtained. No prior studies are available for comparison at the time of dictation. The skeletal structures are osteopenic. No fracture is seen. No bony erosion or periostitis is identified. The knee and ankle joints are grossly maintained noting mild arthritic change. Diffuse subcutaneous soft tissue edema is present throughout the imaged right leg. No subcutaneous gas is identified. IMPRESSION: 1. Diffuse soft tissue edema is identified in the right leg. This likely corresponds to the reported clinical history of cellulitis. 2. Osteopenia with no acute bony abnormality identified. Electronically signed by: Aly Duncan M.D. 09/16/2017 2:39 PM Dictated Date/Time: 09/16/2017 2:38 PM
== END | disposition home or self-care (01) ==
LOC: C.RAD 13:48
PROVIDERS: ATTEND Neuromusculoskeletal Medicine & OMM
DX: L03.115 Cellulitis of right lower limb (principal)

== ENCOUNTER 2017-10-02 14:24 | Emergency (ER) | payer OTHER ==
[~2017-10-02] VITALS: Ht 162.6 cm; Wt 98.0 kg
[~2017-10-02 14:24] MED LIST changes: -CALCCAP14 PO; -MULT-916 PO; -OMEP20CA9 PO
[2017-10-02 14:29] VITALS: Ht 162.6 cm; Wt 98.0 kg
[2017-10-02] MEDS ORDERED: ESCI5TAB PO (15:07)
--- NOTE | 2017-10-02 15:16 | EMERGENCY ROOM VISIT NOTE ---
History Report prepared by Olivia: Daphnie Ferrera Under the Supervision of: Sj WashingtonO. First contact with patient: 14:49 Chief Complaint: ARM PAIN Stated Complaint: PAIN IN L ARM,SHARP PAIN IN JAW History of Present Illness The patient is a 62 year old female who presents to the Emergency Room with complaints of persistent left arm pain. This is in her mid left humerus. This started one month ago. She describes as a throbbing pain and constant. Any movement of her left upper extremity exacerbates the pain. Holding her left arm in flexion across her chest improves the pain. There is no weakness in the arm. No numbness. No trauma. Patient denies any fevers, chest pain or shortness of breath. She does know she was presents to treated for cellulitis in her right lower extremity. Pt denies headache, change in vision, fevers, chest pain, shortness of breath, nausea, vomiting, diarrhea, pain with urination, and melena. Source of History: patient Onset: one month ago Position: arm (left) Timing: other (persistent) Modifying Factors (Worsening): movement Modifying Factors (Relieving): other (holding arm in flexion) Associated Symptoms: No headache, No chest pain, No SOB, No nausea, No vomiting, No diarrhea Review of Systems See HPI for pertinent positives & negatives. A total of 10 systems reviewed and were otherwise negative. Past Medical & Surgical Medical Problems: (1) Nausea & vomiting (2) Right upper quadrant pain Family History Patient reports no known family medical history. Social History Smoking Status: Current Some Day Smoker Smokeless Tobacco Use: Unknown Alcohol Use: none Drug Use: none Current/Historical Medications Scheduled Aspirin (Aspirin Ec), 81 MG PO HS Calcium Carbonate-Cholecalcife (Calcium/Vitamin D3), 1 CAP PO QAM Cephalexin (Keflex), 1 CAP PO TID Multiple Vitamins W/ Minerals (Multivitamin Adults 50+), 1 TAB PO QAM Omeprazole (Prilosec), 20 MG PO QAM Oxybutynin Chloride (Ditropan), 5 MG PO DAILY Allergies Coded Allergies: Amoxicillin (Verified Allergy, Intermediate, RASH ALL OVER BODY, 10/02/17) Clavulanic Acid (Verified Allergy, Intermediate, RASH ALL OVER BODY, 10/02) Oat Rolled (Verified Allergy, Intermediate, RASH, 10/02/17) Physical Exam Vital Signs Date Time Temp Pulse Resp B/P (MAP) Pulse Ox O2 Delivery O2 Flow Rate FiO2 10/02/17 17:47 36.6 52 18 175/86 96 10/02/17 17:29 52 175/86 96 10/02/17 17:24 53 97 10/02/17 17:19 53 99 10/02/17 17:14 56 99 10/02/17 17:09 49 95 10/02/17 17:04 56 92 10/02/17 16:59 65 97 10/02/17 16:56 181/75 10/02/17 16:56 53 18 181/75 97 Room Air 10/02/17 15:54 55 20 10/02/17 15:49 53 20 10/02/17 15:44 62 22 10/02/17 15:39 55 17 10/02/17 15:34 66 22 10/02/17 15:29 59 16 10/02/17 15:24 55 15 10/02/17 15:19 60 20 10/02/17 15:14 60 20 10/02/17 15:09 58 18 10/02/17 15:07 52 10/02/17 15:04 52 18 10/02/17 14:59 60 18 10/02/17 14:54 69 18 10/02/17 14:29 36.6 66 18 159/101 94 Room Air Physical Exam GENERAL: Morbidly obese. Sitting up in bed, alert, well appearing, well nourished, no distress, non-toxic EYE EXAM: normal conjunctiva. OROPHARYNX: no exudate, no erythema, lips, buccal mucosa, and tongue normal and mucous membranes are moist NECK: supple, no nuchal rigidity, no adenopathy, non-tender LUNGS: Clear to auscultation. Normal chest wall mechanics HEART: no murmurs, S1 normal and S2 normal ABDOMEN: abdomen soft, non-tender, normo-active bowel sounds, no masses, no rebound or guarding. BACK: Back is symmetrical on inspection and there is no deformity, no midline tenderness, no CVA tenderness. SKIN: no rashes and no bruising UPPER EXTREMITIES: Tenderness to mid left humerus, which which worsens with any movement. Wrist/forearm gross sensation is intact along with full range of motion. Upper extremities are grossly normal. LOWER EXTREMITIES: Right calve larger than left. With pitting edema. Erythema on the anterior nath of the right lower extremity tracking up to mid nath with erythema on the posterior nath/calf checking out to 3 cm scab in the middle of the nath NEURO EXAM: Normal sensorium, cranial nerves II-XII grossly intact. With movement of left upper extremity. Right upper extremity with contracture secondary to old stroke Medical Decision & Procedures ER Provider Diagnostic Interpretation: Radiology results as stated below per my review and the radiologist's interpretation: LEFT HUMERUS 2 VIEWS CLINICAL HISTORY: Left arm pain. FINDINGS: AP and lateral views of the left humerus are obtained. No prior studies are available for comparison at the time of dictation. The skeletal structures are osteopenic. There is no radiographic evidence of left humeral fracture. Calcific tendinopathy is noted in the left shoulder. The shoulder and elbow joints are grossly intact. The overlying soft tissues are within normal limits. The visualized left lung parenchyma appears clear. IMPRESSION: 1. Osteopenia with no radiographic evidence of left humeral fracture. 2. Calcific tendinopathy is noted in the left shoulder. Electronically signed by: Aly Duncan M.D. 10/02/2017 3:48 PM Dictated Date/Time: 10/02/2017 3:46 PM ULTRASOUND RIGHT LOWER EXTREMITY VENOUS CLINICAL HISTORY: Right leg swelling. COMPARISON STUDY: No priors. TECHNIQUE: Real-time, grayscale, and color Doppler sonography of the deep veins of the right lower extremity was performed from the inguinal crease to the calf. Compression and augmentation were utilized. FINDINGS: There is no sonographic evidence of deep venous thrombosis identified in the right lower extremity. The common femoral, superficial femoral, and popliteal veins are patent and normally compressible. The greater saphenous vein and the profunda femoris vein at the junction with the common femoral vein are clear. The visualized calf veins are patent. IMPRESSION: There is no sonographic evidence of deep venous thrombosis identified in the right lower extremity. Electronically signed by: Aly Duncan M.D. 10/02/2017 4:43 PM Dictated Date/Time: 10/02/2017 4:42 PM Laboratory Results 10/02/17 15:05 Red Blood Count 4.42, Mean Corpuscular Volume 91.6, Mean Corpuscular Hemoglobin 30.3, Mean Corpuscular Hemoglobin Concent 33.1, Mean Platelet Volume 9.4, Neutrophils (%) (Auto) 56.6, Lymphocytes (%) (Auto) 31.6, Monocytes (%) (Auto) 7.3, Eosinophils (%) (Auto) 3.8, Basophils (%) (Auto) 0.5, Neutrophils # (Auto) 3.32, Lymphocytes # (Auto) 1.85, Monocytes # (Auto) 0.43, Eosinophils # (Auto) 0.22, Basophils # (Auto) 0.03 10/02/17 15:05 Test 10/02/17 15:05 White Blood Count 5.86 K/uL (4.8-10.8) Red Blood Count 4.42 M/uL (4.2-5.4) Hemoglobin 13.4 g/dL (12.0-16.0) Hematocrit 40.5 % (37-47) Mean Corpuscular Volume 91.6 fL (80-100) Mean Corpuscular Hemoglobin 30.3 pg (25-34) Mean Corpuscular Hemoglobin Concent 33.1 g/dl (32-36) Platelet Count 247 K/uL (130-400) Mean Platelet Volume 9.4 fL (7.4-10.4) Neutrophils (%) (Auto) 56.6 % Lymphocytes (%) (Auto) 31.6 % Monocytes (%) (Auto) 7.3 % Eosinophils (%) (Auto) 3.8 % Basophils (%) (Auto) 0.5 % Neutrophils # (Auto) 3.32 K/uL (1.4-6.5) Lymphocytes # (Auto) 1.85 K/uL (1.2-3.4) Monocytes # (Auto) 0.43 K/uL (0.11-0.59) Eosinophils # (Auto) 0.22 K/uL (0-0.5) Basophils # (Auto) 0.03 K/uL (0-0.2) RDW Standard Deviation 42.7 fL (36.4-46.3) RDW Coefficient of Variation 12.6 % (11.5-14.5) Immature Granulocyte % (Auto) 0.2 % Immature Granulocyte # (Auto) 0.01 K/uL (0.00-0.02) Prothrombin Time 10.7 SECONDS (9.0-12.0) Prothromb Time International Ratio 1.0 (0.9-1.1) Anion Gap 8.0 mmol/L (3-11) Est Creatinine Clear Calc Drug Dose 122.8 ml/min Estimated GFR () 117.2 Estimated GFR (Non- 101.1 BUN/Creatinine Ratio 25.2 (10-20) Calcium Level 9.2 mg/dl (8.5-10.1) Laboratory results per my review. Medications Administered Medications (Trade) Dose Ordered Sig/Rachana Route Start Time Stop Time Status Last Admin Dose Admin Cephalexin Monohydrate (Keflex Cap) 500 mg NOW ONCE PO 10/02/17 17:15 10/02/17 17:16 DC 10/02/17 17:46 500 MG ECG Indication: chest pain Rate (beats per minute): 51 Rhythm: sinus bradycardia Findings: no ectopy Change: Compared to ED Course ED COURSE: Vital signs were reviewed and showed hypertensive. The patients medical record was reviewed The above diagnostic studies were performed and reviewed. ED treatments and interventions as stated above. 1458: The patient was evaluated in room A9. A complete history and physical examination was performed. 1715: I reevaluated the patient. She states that she thinks she has had Keflex before, without any trouble. Ordered Keflex Cap 500mg PO. 1730: Upon reevaluation, the patient is resting comfortably.I discussed my findings with the patient and she understands and agrees with the treatment plan. The patient remained stable while under my care. Medical Decision Differential diagnosis: Etiologies such as fracture, dislocation, neurovascular compromise, compartment syndrome, soft tissue injury, as well as others were entertained. The patient is a 62 year old female who presents to the ED with complaints of left arm pain. This pain has been present for the last month. Pain worsens with movement. Improved with rest. She has had a previous stroke which affected right side. Patient has significant pain on palpation of the mid humerus along with movement. Neurologically and vascularly intact on the left. X-ray was negative. She did have swelling in the right lower extremity. Ultrasound showed no DVT. She did have faint erythema and was recently treated for cellulitis. She thinks that she had good success with Keflex. I did place her back on Keflex. CBC and BMP were unremarkable. Patient was discharged to follow-up with PCP for musculoskeletal left forearm pain and discharged with Keflex for sialitis of the right lower cavity to follow-up with PCP. Discussed with Pt concerning signs and symptoms to watch out for. Pt was instructed to follow up with their PCP and discussed with the patient their option to return to the ED at anytime for persistent or worsening symptoms. The appropriate anticipatory guidance and out-patient management, including indications for return to the emergency department, were explained at length to the patient and understood. Medication Reconcilliation Current Medication List: was personally reviewed by me Blood Pressure Screening Patient's blood pressure: Elevated blood pressure Blood pressure disposition: Elevated BP felt to be situational Impression Primary Impression: Arm pain, left Additional Impression: Cellulitis Scribe Attestation The scribe's documentation has been prepared under my direction and personally reviewed by me in its entirety. I confirm that the note above accurately reflects all work, treatment, procedures, and medical decision making performed by me. Departure Information Dispostion Home / Self-Care Prescriptions Cephalexin (KEFLEX) 500 Mg Cap 1 CAP PO TID for 10 Days, #30 CAP Prov: Gregg Villarreal, DO 10/02/17 Referrals Ilya Christianson D.OKermit (PCP) Forms HOME CARE DOCUMENTATION FORM, IMPORTANT VISIT INFORMATION Patient Instructions My [facility] Additional Instructions Please follow up with your primary care doctor with in the next 24 hours. Any worsening of your symptoms, please return to the ED immediately. This includes any fevers greater than 100.4, worsening pain, chest pain, shortness breath, persistent nausea, vomiting, unable to eat or drink, or any other concerning signs or symptoms from your standpoint. Please take antibiotics as prescribed. If you have any worsening of the redness in her right lower extremity he need to follow up immediately with her primary care doctor. Please take Motrin or Tylenol as needed for left arm pain. Problem Qualifiers Additional Impression: Cellulitis Site of cellulitis: unspecified site Qualified Codes: L03.90 - Cellulitis, unspecified
[2017-10-02 15:24] LABS: BASO % 0.5 %; BASO ABS # 0.03 K/uL (0-0.2); EOS % 3.8 %; EOS ABS # 0.22 K/uL (0-0.5); HEMATOCRIT 40.5 % (37-47); HEMOGLOBIN 13.4 g/dL (12.0-16.0); IG# 0.01 K/uL (0.00-0.02); LYMPH % 31.6 %; LYMPH ABS # 1.85 K/uL (1.2-3.4); MEAN CELL VOLUME 91.6 fL (80-100); MEAN CORPUSCULAR HEMOGLOBIN 30.3 pg (25-34); MEAN CORPUSCULAR HGB CONC 33.1 g/dl (32-36); MEAN PLATELET VOLUME 9.4 fL (7.4-10.4); MONO % 7.3 %; MONO ABS # 0.43 K/uL (0.11-0.59); NEUT % 56.6 %; NEUT ABS # 3.32 K/uL (1.4-6.5); PLATELET COUNT 247 K/uL (130-400); RED CELL DISTRIBUTION WIDTH CV 12.6 % (11.5-14.5); RED CELL DISTRIBUTION WIDTH SD 42.7 fL (36.4-46.3); WHITE BLOOD COUNT 5.86 K/uL (4.8-10.8)
--- NOTE | 2017-10-02 15:49 | DIAGNOSTIC IMAGING REPORT ---
LEFT HUMERUS 2 VIEWS CLINICAL HISTORY: Left arm pain. FINDINGS: AP and lateral views of the left humerus are obtained. No prior studies are available for comparison at the time of dictation. The skeletal structures are osteopenic. There is no radiographic evidence of left humeral fracture. Calcific tendinopathy is noted in the left shoulder. The shoulder and elbow joints are grossly intact. The overlying soft tissues are within normal limits. The visualized left lung parenchyma appears clear. IMPRESSION: 1. Osteopenia with no radiographic evidence of left humeral fracture. 2. Calcific tendinopathy is noted in the left shoulder. Electronically signed by: Aly Duncan M.D. 10/02/2017 3:48 PM Dictated Date/Time: 10/02/2017 3:46 PM
[2017-10-02 16:09] LABS: CALCIUM 9.2 mg/dl (8.5-10.1); CREATININE 0.54 mg/dl (0.60-1.20); POTASSIUM 3.8 mmol/L (3.5-5.1)
--- NOTE | 2017-10-02 16:44 | DIAGNOSTIC IMAGING REPORT ---
ULTRASOUND RIGHT LOWER EXTREMITY VENOUS CLINICAL HISTORY: Right leg swelling. COMPARISON STUDY: No priors. TECHNIQUE: Real-time, grayscale, and color Doppler sonography of the deep veins of the right lower extremity was performed from the inguinal crease to the calf. Compression and augmentation were utilized. FINDINGS: There is no sonographic evidence of deep venous thrombosis identified in the right lower extremity. The common femoral, superficial femoral, and popliteal veins are patent and normally compressible. The greater saphenous vein and the profunda femoris vein at the junction with the common femoral vein are clear. The visualized calf veins are patent. IMPRESSION: There is no sonographic evidence of deep venous thrombosis identified in the right lower extremity. Electronically signed by: Aly Duncan M.D. 10/02/2017 4:43 PM Dictated Date/Time: 10/02/2017 4:42 PM
[2017-10-02] MEDS ORDERED: CEPHALEXIN MONOHYDRATE 250 MG CAP PO ONE (17:15)
[2017-10-02] MEDS ORDERED: CEPH-571 PO (17:16)
[2017-10-02 17:47] VITALS: BP 175/86; PULSE 52; TEMP 36.6; O2SAT 96
[2018-01-09] MEDS ORDERED: ASPI81TA28 PO (15:07)
[2018-01-09] MEDS ORDERED: DTR/5 PO (15:07)
[2018-01-09] MEDS ORDERED: POTA-639 PO (15:07)
== END 2017-10-02 17:49 | disposition home or self-care (01) ==
LOC: C.EDB 14:25 → C.EDA 17:49
DX: M79.602 Pain in left arm (principal); L03.115 Cellulitis of right lower limb; R00.1 Bradycardia, unspecified; E66.01 Morbid (severe) obesity due to excess calories; Z79.82 Long term (current) use of aspirin; Z79.899 Other long term (current) drug therapy; F17.200 Nicotine dependence, unspecified, uncomplicated

== ENCOUNTER → 2017-10-27 | Outpatient (CLI) | payer OTHER ==
[~2017-10-27] MED LIST changes: +ASPI81TA28 PO; +CALCCAP14 PO; +DTR/5 PO; -ESCI10TA17 PO; -LDDP5 TD; +MULT-916 PO; +OMEP20CA9 PO; -OXYC-57 PO; -PRIM50TA29 PO; -VNTHFA/IN INH
[2017-10-27 11:16] LABS: BLOOD UREA NITROGEN 14 mg/dl (7-18); CALCIUM 9.7 mg/dl (8.5-10.1); CARBON DIOXIDE 33 mmol/L (21-32); CREATININE 0.57 mg/dl (0.60-1.20); GLUCOSE 125 mg/dl (70-99); POTASSIUM 3.1 mmol/L (3.5-5.1); SODIUM 139 mmol/L (136-145)
== END | disposition home or self-care (01) ==
LOC: C.LAB 10:08
PROVIDERS: ATTEND Nurse Practitioner Adult Health
DX: I10 Essential (primary) hypertension (principal)

== ENCOUNTER → 2017-11-06 | Outpatient (CLI) | payer OTHER ==
[2017-11-06 18:36] LABS: BLOOD UREA NITROGEN 11 mg/dl (7-18); CALCIUM 9.4 mg/dl (8.5-10.1); CARBON DIOXIDE 33 mmol/L (21-32); CREATININE 0.58 mg/dl (0.60-1.20); GLUCOSE 92 mg/dl (70-99); POTASSIUM 3.4 mmol/L (3.5-5.1); SODIUM 138 mmol/L (136-145)
== END | disposition home or self-care (01) ==
LOC: C.LABPBG 10:45
PROVIDERS: ATTEND Nurse Practitioner Adult Health
DX: E87.6 Hypokalemia (principal)

== ENCOUNTER → 2017-12-09 | Outpatient (CLI) | payer OTHER | END | disposition home or self-care (01) | LOC: C.LABPBG 09:40 | PROVIDERS: ATTEND Neuromusculoskeletal Medicine & OMM | DX: E87.6 Hypokalemia (principal) ==

== ENCOUNTER → 2017-12-30 | Outpatient (CLI) | payer OTHER ==
[~2017-12-30] MED LIST changes: +POTA20TA16 PO
[2017-12-30 17:09] LABS: BLOOD UREA NITROGEN 14 mg/dl (7-18); CALCIUM 9.5 mg/dl (8.5-10.1); CARBON DIOXIDE 29 mmol/L (21-32); CREATININE 0.64 mg/dl (0.60-1.20); GLUCOSE 99 mg/dl (70-99); POTASSIUM 3.8 mmol/L (3.5-5.1); SODIUM 136 mmol/L (136-145)
== END | disposition home or self-care (01) ==
LOC: C.LABPBG 14:15
PROVIDERS: ATTEND Family Medicine
DX: E87.6 Hypokalemia (principal)

== ENCOUNTER 2018-01-09 16:31 | Emergency (ER) | payer OTHER ==
[~2018-01-09 16:31] MED LIST changes: -CALCCAP14 PO; -MULT-916 PO; -OMEP20CA9 PO
[2018-01-09 16:42] VITALS: Ht 162.6 cm
[2018-01-09] MEDS ORDERED: SODIUM CHLORIDE 0.9% 500ML 500 ML IV STA ×2 (17:19→19:01)
--- NOTE | 2018-01-09 17:22 | EMERGENCY ROOM VISIT NOTE ---
History Report prepared by Olivia: Mary Hoffman Under the Supervision of: Dr. Yo Poe M.D. First contact with patient: 17:06 Chief Complaint: OTHER COMPLAINT Stated Complaint: NO APPETITE, CONSTANTLY SLEEPING History of Present Illness The patient is a 62 year old female who presents to the Emergency Room with complaints of weakness beginning 4 days ago. She also reports having generalized body aches and fatigue. The patient states that she has also had headaches, and frequent urination, but denies vomiting and diarrhea. She reports that she takes Potassium supplements for her stomach and that it has been making her nauseous. The patient states that she has had a loss of appetite due to the nausea but has been forcing herself to eat so that she can take her medications. Source of History: patient Onset: 4 days ago Position: other (global) Quality: other (weakness ) Associated Symptoms: + headache, + nausea, + urinary symptoms (frequent urination ), + fatigue, No vomiting, No diarrhea Note: additional symptom: generalized body aches Review of Systems See HPI for pertinent positives and negatives. A total of ten systems were reviewed and were otherwise negative. Past Medical & Surgical Medical Problems: (1) Nausea & vomiting (2) Right upper quadrant pain Family History Patient reports no known family medical history. Social History Smoking Status: Never Smoker Alcohol Use: none Drug Use: none Marital Status: Occupation Status: disabled Current/Historical Medications Scheduled Aspirin (Aspirin Ec), 81 MG PO HS Calcium Carbonate-Cholecalcife (Calcium/Vitamin D3), 1 CAP PO QAM Ciprofloxacin Hcl (Cipro), 500 MG PO BID Multiple Vitamins W/ Minerals (Multivitamin Adults 50+), 1 TAB PO QAM Omeprazole (Prilosec), 20 MG PO BID Oxybutynin Chloride (Ditropan), 5 MG PO DAILY Potassium Ext Rel (Klor-Con), 40 MEQ PO BID Ranitidine Hcl (Zantac), 150 MG PO HS Saccharomyces Boulardii (Florastor), 1 CAP PO BID Allergies Coded Allergies: Amoxicillin (Verified Allergy, Intermediate, RASH ALL OVER BODY, 10/02/17) Clavulanic Acid (Verified Allergy, Intermediate, RASH ALL OVER BODY, 10/02) Oat Rolled (Verified Allergy, Intermediate, RASH, 10/02/17) Physical Exam Vital Signs Date Time Temp Pulse Resp B/P (MAP) Pulse Ox O2 Delivery O2 Flow Rate FiO2 01/09/18 20:20 37.3 72 18 132/79 95 01/09/18 19:42 82 15 95 Room Air 01/09/18 17:55 89 20 142/72 94 Room Air 01/09/18 17:30 94 Room Air 01/09/18 16:42 36.9 98 20 125/58 94 Room Air Physical Exam GENERAL: Awake, alert, fatigued-appearing, in no distress HENT: Normocephalic, atraumatic. Dry, cracked mucous membranes, otherwise oropharynx unremarkable. EYES: Normal conjunctiva. Sclera non-icteric. NECK: Supple. No nuchal rigidity. FROM. No JVD. RESPIRATORY: Clear to auscultation. CARDIAC: Regular rate, normal rhythm. Extremities warm and well perfused. Pulses equal. ABDOMEN: Soft, non-distended. No tenderness to palpation. No rebound or guarding. No masses. RECTAL: Deferred. MUSCULOSKELETAL: Chest examination reveals no tenderness. The back is symmetrical on inspection without obvious abnormality. There is no CVA tenderness to palpation. No joint edema. LOWER EXTREMITIES: Calves are equal size bilaterally and non-tender. 1+ lower extremity edema. No discoloration. NEURO: Normal sensorium. No sensory or motor deficits noted. SKIN: No rash or jaundice noted. Medical Decision & Procedures ER Provider Diagnostic Interpretation: Radiology results as stated below per my review and radiologist interpretation: CHEST ONE VIEW PORTABLE CLINICAL HISTORY: Atypical chest pain COMPARISON STUDY: Chest CT dated 02/12/2017 FINDINGS: The heart is at the upper limits of normal in size. There is no focal pulmonary consolidation. There is mild interstitial thickening. There are no pleural effusions.[ IMPRESSION: Mild interstitial thickening. No evidence of focal pulmonary consolidation Electronically signed by: David Evans M.D. 01/09/2018 6:17 PM Dictated Date/Time: 01/09/2018 6:16 PM Laboratory Results 01/09/18 17:35 Red Blood Count 4.69, Mean Corpuscular Volume 90.0, Mean Corpuscular Hemoglobin 31.1, Mean Corpuscular Hemoglobin Concent 34.6, Mean Platelet Volume 9.4, Neutrophils (%) (Auto) 70.9, Lymphocytes (%) (Auto) 17.8, Monocytes (%) (Auto) 7.2, Eosinophils (%) (Auto) 3.5, Basophils (%) (Auto) 0.4, Neutrophils # (Auto) 3.26, Lymphocytes # (Auto) 0.82, Monocytes # (Auto) 0.33, Eosinophils # (Auto) 0.16, Basophils # (Auto) 0.02 01/09/18 17:35 Test 01/09/18 17:35 01/09/18 17:37 01/09/18 18:35 White Blood Count 4.60 K/uL (4.8-10.8) Red Blood Count 4.69 M/uL (4.2-5.4) Hemoglobin 14.6 g/dL (12.0-16.0) Hematocrit 42.2 % (37-47) Mean Corpuscular Volume 90.0 fL (80-100) Mean Corpuscular Hemoglobin 31.1 pg (25-34) Mean Corpuscular Hemoglobin Concent 34.6 g/dl (32-36) Platelet Count 199 K/uL (130-400) Mean Platelet Volume 9.4 fL (7.4-10.4) Neutrophils (%) (Auto) 70.9 % Lymphocytes (%) (Auto) 17.8 % Monocytes (%) (Auto) 7.2 % Eosinophils (%) (Auto) 3.5 % Basophils (%) (Auto) 0.4 % Neutrophils # (Auto) 3.26 K/uL (1.4-6.5) Lymphocytes # (Auto) 0.82 K/uL (1.2-3.4) Monocytes # (Auto) 0.33 K/uL (0.11-0.59) Eosinophils # (Auto) 0.16 K/uL (0-0.5) Basophils # (Auto) 0.02 K/uL (0-0.2) RDW Standard Deviation 41.6 fL (36.4-46.3) RDW Coefficient of Variation 12.8 % (11.5-14.5) Immature Granulocyte % (Auto) 0.2 % Immature Granulocyte # (Auto) 0.01 K/uL (0.00-0.02) Anion Gap 8.0 mmol/L (3-11) Estimated GFR () 97.4 Estimated GFR (Non- 84.1 BUN/Creatinine Ratio 13.7 (10-20) Calcium Level 9.3 mg/dl (8.5-10.1) Magnesium Level 1.9 mg/dl (1.8-2.4) Total Bilirubin 0.6 mg/dl (0.2-1) Direct Bilirubin 0.2 mg/dl (0-0.2) Aspartate Amino Transf (AST/SGOT) 41 U/L (15-37) Alanine Aminotransferase (ALT/SGPT) 43 U/L (12-78) Alkaline Phosphatase 87 U/L (45-117) Troponin I < 0.015 ng/ml (0-0.045) Pro-B-Type Natriuretic Peptide 69 pg/ml (0-900) Total Protein 8.1 gm/dl (6.4-8.2) Albumin 3.6 gm/dl (3.4-5.0) Lipase 97 U/L (73-393) Influenza Type A (RT-PCR) Neg for Influ A (NEG) Influenza Type B (RT-PCR) Neg for Influ B (NEG) Urine Color DK YELLOW Urine Appearance CLEAR (CLEAR) Urine pH 5.0 (4.5-7.5) Urine Specific Tok 1.021 (1.000-1.030) Urine Protein NEG (NEG) Urine Glucose (UA) NEG (NEG) Urine Ketones NEG (NEG) Urine Occult Blood 1+ (NEG) Urine Nitrite POS (NEG) Urine Bilirubin NEG (NEG) Urine Urobilinogen NEG (NEG) Urine Leukocyte Esterase SMALL (NEG) Urine WBC (Auto) 10-30 /hpf (0-5) Urine RBC (Auto) 0-4 /hpf (0-4) Urine Hyaline Casts (Auto) 1-5 /lpf (0-5) Urine Epithelial Cells (Auto) >30 /lpf (0-5) Urine Bacteria (Auto) 4+ (NEG) Laboratory results reviewed by me Medications Administered Medications (Trade) Dose Ordered Sig/Rachana Route Start Time Stop Time Status Last Admin Dose Admin Sodium Chloride 500 ml @ 999 mls/hr Q31M STAT IV 01/09/18 17:19 01/09/18 17:49 DC 01/09/18 18:06 999 MLS/HR Ciprofloxacin (Cipro Tab) 500 mg NOW STAT PO 01/09/18 18:59 01/09/18 19:02 DC 01/09/18 19:32 500 MG Sodium Chloride 500 ml @ 999 mls/hr Q31M STAT IV 01/09/18 19:01 01/09/18 19:31 DC 01/09/18 19:20 999 MLS/HR ECG Per My Interpretation Indication: weakness Rate (beats per minute): 90 Rhythm: normal sinus Findings: RBBB (incomplete ), no acute ischemic change, other (left axis deviation ) ED Course 1709: The patient was evaluated in room B2. A complete history and physical exam was performed. 1913: I reevaluated the patient and he is feeling better. Discussed results and discharge instructions: She verbalized understanding and agreement. The patient is ready for discharge. Medical Decision I reviewed the patient's past medical history, medications, and the nursing notes as described above. Differential diagnosis: Etiologies such as metabolic, infection, hypo/hyperglycemia, electrolyte abnormalities, cardiac sources, intracerebral event, toxicologic, neurologic, as well as others were entertained. The patient is a 62-year-old woman who presents emergency department with generalized weakness, feverishness over the past couple of days per hpi. Arrival patient is fatigued appearing but no acute distress. Afebrile stable vital signs. Influenza negative. Chest x-ray negative for pneumonia. WBC 4.6. Labs otherwise unremarkable. UA consistent with UTI. Patient feeling improved after IV fluids. Will treat with Cipro. Findings and plan for follow- up reviewed with patient. Patient agreeable and d/c'd per discharge instructions. Medication Reconcilliation Current Medication List: was personally reviewed by me Blood Pressure Screening Patient's blood pressure: Elevated blood pressure Blood pressure disposition: Elevated BP felt to be situational Impression Primary Impression: UTI (urinary tract infection) Scribe Attestation The scribe's documentation has been prepared under my direction and personally reviewed by me in its entirety. I confirm that the note above accurately reflects all work, treatment, procedures, and medical decision making performed by me. Departure Information Dispostion Home / Self-Care Prescriptions Saccharomyces Boulardii (Florastor) 250 Mg Cap 1 CAP PO BID for 10 Days, #20 CAP Prov: Yo Poe M.D. 01/09/18 Ciprofloxacin Hcl (CIPRO) 500 Mg Tab 500 MG PO BID for 7 Days, #14 TAB Prov: Yo Poe M.D. 01/09/18 Referrals Farzana Pickard DO (PCP) Forms HOME CARE DOCUMENTATION FORM, IMPORTANT VISIT INFORMATION, WORK / SCHOOL INSTRUCTIONS Patient Instructions ED UTI Cystitis Female, My [facility] Additional Instructions Please follow up with your primary care physician in the next 1-3 days for re- evaluation. You were found to have a urinary tract infection. Otherwise, your exam, EKG, chest xray, and lab results did not show signs of an emergent condition at this time. Acetaminophen or ibuprofen for pain and fevers as needed. Ciprofloxacin as directed. Florastor, probiotic, to help prevent antibiotic associated diarrhea. Drink plenty of fluids to ensure hydration. Return to the emergency department for worsening symptoms as described in the accompanying instructions.
[2018-01-09 17:30] VITALS: O2SAT 94
[2018-01-09] MEDS ORDERED: RANITAB33 PO (17:55)
[2018-01-09 18:02] LABS: BASO % 0.4 %; BASO ABS # 0.02 K/uL (0-0.2); EOS % 3.5 %; EOS ABS # 0.16 K/uL (0-0.5); HEMATOCRIT 42.2 % (37-47); HEMOGLOBIN 14.6 g/dL (12.0-16.0); IG# 0.01 K/uL (0.00-0.02); LYMPH % 17.8 %; LYMPH ABS # 0.82 K/uL (1.2-3.4); MEAN CORPUSCULAR HEMOGLOBIN 31.1 pg (25-34); MEAN CORPUSCULAR HGB CONC 34.6 g/dl (32-36); MEAN PLATELET VOLUME 9.4 fL (7.4-10.4); MONO % 7.2 %; MONO ABS # 0.33 K/uL (0.11-0.59); NEUT % 70.9 %; NEUT ABS # 3.26 K/uL (1.4-6.5); PLATELET COUNT 199 K/uL (130-400); RED CELL DISTRIBUTION WIDTH CV 12.8 % (11.5-14.5); RED CELL DISTRIBUTION WIDTH SD 41.6 fL (36.4-46.3)
[2018-01-09 18:14] LABS: ALBUMIN 3.6 gm/dl (3.4-5.0); ALT/SGPT 43 U/L (12-78); BLOOD UREA NITROGEN 10 mg/dl (7-18); CALCIUM 9.3 mg/dl (8.5-10.1); CARBON DIOXIDE 26 mmol/L (21-32); CREATININE 0.76 mg/dl (0.60-1.20); GLUCOSE 107 mg/dl (70-99); LIPASE 97 U/L (73-393); POTASSIUM 3.7 mmol/L (3.5-5.1); SODIUM 135 mmol/L (136-145)
--- NOTE | 2018-01-09 18:18 | DIAGNOSTIC IMAGING REPORT ---
CHEST ONE VIEW PORTABLE CLINICAL HISTORY: Atypical chest pain COMPARISON STUDY: Chest CT dated 02/12/2017 FINDINGS: The heart is at the upper limits of normal in size. There is no focal pulmonary consolidation. There is mild interstitial thickening. There are no pleural effusions.[ IMPRESSION: Mild interstitial thickening. No evidence of focal pulmonary consolidation Electronically signed by: David Evans M.D. 01/09/2018 6:17 PM Dictated Date/Time: 01/09/2018 6:16 PM
[2018-01-09 18:20] LABS: ALKALINE PHOSPHATASE 87 U/L (45-117); AST/SGOT 41 U/L (15-37); TOTAL PROTEIN 8.1 gm/dl (6.4-8.2)
[2018-01-09 18:33] LABS: INFLUENZA A PCR Neg for Influ A (NEG); INFLUENZA B PCR Neg for Influ B (NEG)
[2018-01-09] MEDS ORDERED: CIPROFLOXACIN 500 MG TAB PO STA (18:59)
[2018-01-09] MEDS ORDERED: CIPR-255 PO (19:15)
[2018-01-09] MEDS ORDERED: SACC250C3 PO (19:15)
[2018-01-09 20:20] VITALS: BP 132/79; PULSE 72; TEMP 37.3; O2SAT 95
[2018-01-09] MEDS ORDERED: CALCCAP14 PO (23:13)
[2018-01-09] MEDS ORDERED: MULT-916 PO (23:13)
[2018-01-09] MEDS ORDERED: OMEP20CA9 PO (23:13)
== END 2018-01-09 20:27 | disposition home or self-care (01) ==
LOC: C.EDB 16:32
DX: N39.0 Urinary tract infection, site not specified (principal); Z79.82 Long term (current) use of aspirin; Z79.899 Other long term (current) drug therapy; Z88.1 Allergy status to other antibiotic agents; Z91.018 Allergy to other foods

== ENCOUNTER → 2018-01-15 | Outpatient (CLI) | payer OTHER ==
[~2018-01-15] MED LIST changes: +CALCCAP14 PO; +CIPR-255 PO; +CRFL PO; +HYDR25TA4 PO; +MULT-916 PO; +OMEP20CA9 PO; +POTA-639 PO; -POTA20TA16 PO; +PROB1CAP41 PO; +RANITAB33 PO; +SACC250C11; +SACC250C3 PO
== END | disposition home or self-care (01) ==
LOC: C.LABSPEC 12:02
PROVIDERS: ATTEND Family Medicine
DX: R39.9 Unspecified symptoms and signs involving the genitourinary system (principal)

== ENCOUNTER 2018-01-20 14:19 | Emergency (ER) | payer OTHER ==
[~2018-01-20 14:19] MED LIST changes: -CRFL PO; -HYDR25TA4 PO; -PROB1CAP41 PO; -SACC250C11
[2018-01-20 14:24] VITALS: TEMP 36.7; Ht 162.6 cm
[2018-01-20] MEDS ORDERED: ALUMINUM/MAGNESIUM SUSP 30 ML UDC PO STA (14:47)
[2018-01-20] MEDS ORDERED: SACC250C11 (15:09)
--- NOTE | 2018-01-20 15:12 | DIAGNOSTIC IMAGING REPORT ---
CHEST ONE VIEW PORTABLE CLINICAL HISTORY: 62 years-old Female presenting with CHEST PAIN. TECHNIQUE: Portable upright AP view of the chest was obtained. COMPARISON: 01/09/2018. FINDINGS: Cardiomediastinal silhouette normal. Few bandlike opacities noted in the mid and lower lungs. No other focal opacity. No large effusion or pneumothorax. Osseous structures normal. Upper abdomen normal. IMPRESSION: 1. Minimal linear opacities likely atelectasis. No convincing evidence of acute cardiopulmonary disease. Electronically signed by: Kiet Mosley M.D. 01/20/2018 3:11 PM Dictated Date/Time: 01/20/2018 3:10 PM
[2018-01-20] MEDS ORDERED: PROB1CAP41 PO (15:18)
[2018-01-20 15:19] LABS: BASO % 0.4 %; BASO ABS # 0.03 K/uL (0-0.2); EOS % 2.1 %; EOS ABS # 0.16 K/uL (0-0.5); HEMATOCRIT 41.3 % (37-47); HEMOGLOBIN 13.8 g/dL (12.0-16.0); IG# 0.02 K/uL (0.00-0.02); LYMPH % 18.9 %; LYMPH ABS # 1.41 K/uL (1.2-3.4); MEAN CELL VOLUME 90.8 fL (80-100); MEAN CORPUSCULAR HEMOGLOBIN 30.3 pg (25-34); MEAN CORPUSCULAR HGB CONC 33.4 g/dl (32-36); MEAN PLATELET VOLUME 9.1 fL (7.4-10.4); MONO % 8.6 %; MONO ABS # 0.64 K/uL (0.11-0.59); NEUT % 69.7 %; NEUT ABS # 5.22 K/uL (1.4-6.5); PLATELET COUNT 305 K/uL (130-400); RED CELL DISTRIBUTION WIDTH CV 12.8 % (11.5-14.5); RED CELL DISTRIBUTION WIDTH SD 42.5 fL (36.4-46.3); WHITE BLOOD COUNT 7.48 K/uL (4.8-10.8)
[2018-01-20] MEDS ORDERED: HYDR25TA4 PO (15:22)
--- NOTE | 2018-01-20 15:25 | EMERGENCY ROOM VISIT NOTE ---
History Report prepared by Olivia: Glynn Turcios Under the Supervision of: Dr. Carlton Masters M.D. First contact with patient: 14:25 Chief Complaint: ABDOMINAL PAIN Stated Complaint: PAIN IN STOMACH History of Present Illness The patient is a 62 year old female who presents to the Emergency Room with complaints of intermittent upper abdominal pain beginning over a year ago. The patient had a work-up for her gallbladder last year which was negative. Her most recent bout of pain began four days ago. Her pain is worsened with eating. The patient also complains of nausea. She denies vomiting, chest pain, SOB, headache, or urinary symptoms. She was seen in the ED for similar symptoms last week. The patient denies recent injury or trauma. She has a history of CVA and now has chronic speech deficit as well as right sided weakness. She has a history of GERD. The patient has a history of partial hysterectomy. Source of History: patient Onset: Over a year ago Position: abdomen (upper) Timing: intermittent Modifying Factors (Worsening): eating Associated Symptoms: + nausea, No chest pain, No SOB, No vomiting, No urinary symptoms Review of Systems See HPI for pertinent positives & negatives. A total of 10 systems reviewed and were otherwise negative. Past Medical & Surgical Medical Problems: (1) Nausea & vomiting (2) Right upper quadrant pain Old medical records were reviewed. Nurse's notes were reviewed and I agree with. Family History Patient reports no known family medical history. Social History Smoking Status: Never Smoker Alcohol Use: none Drug Use: none Marital Status: Occupation Status: disabled Current/Historical Medications Scheduled Aspirin (Aspirin Ec), 81 MG PO HS Calcium Carbonate-Cholecalcife (Calcium/Vitamin D3), 1 CAP PO QAM Hydrochlorothiazide (Hctz), 25 MG PO DAILY Multiple Vitamins W/ Minerals (Multivitamin Adults 50+), 1 TAB PO QAM Omeprazole (Prilosec), 20 MG PO BID Oxybutynin Chloride (Ditropan), 5 MG PO DAILY Potassium Ext Rel (Klor-Con), 40 MEQ PO BID Probiotic Product (Probiotic Daily), 1 CAP PO DAILY Ranitidine Hcl (Zantac), 150 MG PO HS Sucralfate (Carafate), 10 ML PO QID Allergies Coded Allergies: Amoxicillin (Verified Allergy, Intermediate, RASH ALL OVER BODY, 10/02/17) Clavulanic Acid (Verified Allergy, Intermediate, RASH ALL OVER BODY, 10/02) Oat Rolled (Verified Allergy, Intermediate, RASH, 10/02/17) Physical Exam Vital Signs Date Time Temp Pulse Resp B/P (MAP) Pulse Ox O2 Delivery O2 Flow Rate FiO2 01/20/18 17:49 74 22 128/80 95 01/20/18 16:16 87 22 128/99 95 Room Air 01/20/18 15:10 92 01/20/18 14:24 36.7 105 20 140/78 93 Room Air Physical Exam General: Non-ill appearing older female in no acute distress. HEENT: Normal cephalic atraumatic. Pupils are equal round and reactive to light. Extraocular movements are intact. Oropharynx is pink with moist mucous membranes. No swelling of the mouth lips or tongue. Neck: Supple with a midline trachea. No meningeal signs or stiffness, no JVD or bruits. No Stridor. Chest: Clear to auscultation bilaterally. No wheezes or rhonchi. No increased work of breathing. Heart: regular rate and rhythm. Abdomen: Soft, nondistended without rebound guarding or rigidity. Mildly tender to the epigastric region. Extremities: No cyanosis clubbing or edema. No calf tenderness or assymetry Spine/Back. Non tender to palpation. No CVA tenderness Skin: Good turgor without rashes. Neurologic exam: Cranial nerves two through 12 are intact. Motor and sensation are intact and symmetrical throughout. Answers questions appropriately. Baseline dysarthria secondary to previous stroke. Medical Decision & Procedures ER Provider Diagnostic Interpretation: Radiology results as stated below per my review and radiologist interpretation: GALLBLADDER-ABD LIMITED FINDINGS: Pancreas: Visualized portions of the pancreatic head and body normal. Liver: Moderately hyperechogenic parenchyma with partial obscuration of the right hemidiaphragm, likely indicating moderate steatosis. The liver measures 16.9 cm in maximal sagittal dimension. No sonographic evidence of hepatic mass. Main portal vein patent with normal directional flow. Biliary: No intrahepatic biliary ductal dilatation. Common bile duct measures up to 5 mm in diameter. Gallbladder: Gallbladder sludge. No evidence of gallstones, gallbladder wall thickening, gallbladder distention, or pericholecystic fluid or inflammatory change. Sonographic Ponce's sign negative. Right kidney: Normal in appearance. No hydronephrosis. Ascites: None. Other: None. IMPRESSION: 1. Gallbladder sludge. No cholelithiasis or biliary ductal dilatation. No evidence of cholecystitis. 2. Hepatic steatosis. Correlate with liver function tests to exclude steatohepatitis as a cause for abdominal pain. Electronically signed by: Kiet Mosley M.D. 01/20/2018 3:44 PM CHEST ONE VIEW PORTABLE FINDINGS: Cardiomediastinal silhouette normal. Few bandlike opacities noted in the mid and lower lungs. No other focal opacity. No large effusion or pneumothorax. Osseous structures normal. Upper abdomen normal. IMPRESSION: 1. Minimal linear opacities likely atelectasis. No convincing evidence of acute cardiopulmonary disease. Electronically signed by: Kiet Mosley M.D. 01/20/2018 3:[address] ABD/PELVIS IV CONTRAST ONLY FINDINGS: Lower chest: There are by basilar atelectatic changes. The heart is mildly enlarged. Liver: There is mild hepatic steatosis. There is a stable 11 mm hypodensity near the level the falciform ligament. Gallbladder: Unremarkable. Spleen: Top normal in size measuring 11.8 cm. No focal masses identified Pancreas: Unremarkable. Adrenal glands: Unremarkable. Kidneys: There is symmetric renal cortical enhancement. The kidneys are normal in size without hydronephrosis. Bowel: There are no transition zones indicate bowel obstruction. The appendix appears normal. There is scattered colonic diverticula. There are no acute peridiverticular inflammatory changes. Peritoneum: There is no intraperitoneal free air or abdominal ascites. There is a tiny fat-containing umbilical hernia. Vasculature: The abdominal aorta is normal in course and caliber. Adenopathy: None. Pelvic viscera: The uterus is surgically absent. There is a 21 mm right adnexal cyst likely ovarian. Skeletal structures: No destructive osseous lesions are seen. IMPRESSION: 1. No acute intra-abdominal or pelvic findings 2. No evidence of bowel obstruction. No evidence of free air 3. Diverticulosis. No evidence of acute diverticulitis 4. Normal appendix 5. 21 mm right adnexal cyst likely ovarian Electronically signed by: David Evans M.D. 01/20/2018 4:48 PM Laboratory Results 01/20/18 15:00 Red Blood Count 4.55, Mean Corpuscular Volume 90.8, Mean Corpuscular Hemoglobin 30.3, Mean Corpuscular Hemoglobin Concent 33.4, Mean Platelet Volume 9.1, Neutrophils (%) (Auto) 69.7, Lymphocytes (%) (Auto) 18.9, Monocytes (%) (Auto) 8.6, Eosinophils (%) (Auto) 2.1, Basophils (%) (Auto) 0.4, Neutrophils # (Auto) 5.22, Lymphocytes # (Auto) 1.41, Monocytes # (Auto) 0.64, Eosinophils # (Auto) 0.16, Basophils # (Auto) 0.03 01/20/18 15:00 Test 01/20/18 15:00 01/20/18 15:03 White Blood Count 7.48 K/uL (4.8-10.8) Red Blood Count 4.55 M/uL (4.2-5.4) Hemoglobin 13.8 g/dL (12.0-16.0) Hematocrit 41.3 % (37-47) Mean Corpuscular Volume 90.8 fL (80-100) Mean Corpuscular Hemoglobin 30.3 pg (25-34) Mean Corpuscular Hemoglobin Concent 33.4 g/dl (32-36) Platelet Count 305 K/uL (130-400) Mean Platelet Volume 9.1 fL (7.4-10.4) Neutrophils (%) (Auto) 69.7 % Lymphocytes (%) (Auto) 18.9 % Monocytes (%) (Auto) 8.6 % Eosinophils (%) (Auto) 2.1 % Basophils (%) (Auto) 0.4 % Neutrophils # (Auto) 5.22 K/uL (1.4-6.5) Lymphocytes # (Auto) 1.41 K/uL (1.2-3.4) Monocytes # (Auto) 0.64 K/uL (0.11-0.59) Eosinophils # (Auto) 0.16 K/uL (0-0.5) Basophils # (Auto) 0.03 K/uL (0-0.2) RDW Standard Deviation 42.5 fL (36.4-46.3) RDW Coefficient of Variation 12.8 % (11.5-14.5) Immature Granulocyte % (Auto) 0.3 % Immature Granulocyte # (Auto) 0.02 K/uL (0.00-0.02) Anion Gap 6.0 mmol/L (3-11) Estimated GFR () 97.4 Estimated GFR (Non- 84.1 BUN/Creatinine Ratio 14.0 (10-20) Calcium Level 9.6 mg/dl (8.5-10.1) Total Bilirubin 0.8 mg/dl (0.2-1) Direct Bilirubin 0.2 mg/dl (0-0.2) Aspartate Amino Transf (AST/SGOT) 21 U/L (15-37) Alanine Aminotransferase (ALT/SGPT) 34 U/L (12-78) Alkaline Phosphatase 98 U/L (45-117) Total Protein 7.7 gm/dl (6.4-8.2) Albumin 3.5 gm/dl (3.4-5.0) Lipase 97 U/L (73-393) Bedside Troponin I < 0.030 ng/ml (0-0.045) Laboratory studies as stated above per my review. Medications Administered Medications (Trade) Dose Ordered Sig/Rachana Route Start Time Stop Time Status Last Admin Dose Admin Al Hydroxide/Mg Hydroxide (Maalox Susp) 30 ml NOW STAT PO 01/20/18 14:47 01/20/18 14:49 DC 01/20/18 15:10 30 ML ECG Per My Interpretation Indication: abdominal pain Rate (beats per minute): 84 Rhythm: normal sinus Findings: RBBB (incomplete), left axis deviation Comparison ECG Date: January 09, 2018 Change: no significant change ED Course 1437: Past medical records reviewed. The patient was evaluated in room B6, and a complete history and physical examination were performed. 1447: Ordered Maalox Susp 30 mL PO. 1745: Upon reevaluation, the patient is resting comfortably. I discussed the results and treatment plan with her. She verbalized agreement of the treatment plan. The patient was discharged home. Medical Decision Differentials include, but are not limited to; peptic ulcer disease, cardiac disease, gall bladder disease, pancreatitis and electrolyte or metabolic abnormality. This patient comes in as described above. She was placed in room B6. She is here for treatment evaluation of epigastric pain. she has been having this off and on for quite some time is gotten worse lately. On exam she is mildly tender. She sells her gallbladder. She has no lower abdominal tenderness. No fever or chills. She has had a previous stroke and has some associated weakness on the right side and dysarthria but no acute problems with this she tells me. she has no trouble with swallowing or aspirating. EKG was obtained which does not suggest acute coronary syndrome or arrhythmia. She has no acute electrolyte or metabolic abnormalities. IV access established was hydrated with IV normal saline given Maalox. She also had a gallbladder ultrasound. Occult bladder ultrasound was negative. There is no white count or fever to suggest infection. She had no acute electrolyte or metabolic abnormalities. CAT scan was also unremarkable. I think is most likely is related peptic ulcer disease. She is already on a proton pump inhibitor as well as a H2 eliezer. I will have her use Carafate before meals and see if that helps as well I do think she needs to be followed up by regular doctor and a GI specialist she may also also in need to be tested for H. pylori. Explained this to the patient and recommend she see her doctor this week. She is to return if: increasing pain, worsening of symptoms, fever or chills, any new problems or concerns. She is happy with plan and discharged to home. Medication Reconcilliation Current Medication List: was personally reviewed by me Blood Pressure Screening Patient's blood pressure: Normal blood pressure Blood pressure disposition: Did not require urgent referral Impression Primary Impression: Epigastric abdominal pain Additional Impression: Peptic ulcer disease Scribe Attestation The scribe's documentation has been prepared under my direction and personally reviewed by me in its entirety. I confirm that the note above accurately reflects all work, treatment, procedures, and medical decision making performed by me. Departure Information Dispostion Home / Self-Care Prescriptions Sucralfate (CARAFATE) 1 Gm/10 Ml Rachele 10 ML PO QID for 30 Days, #1200 ML Prov: Carlton Masters M.D. 01/20/18 Referrals Farzana Pickard DO (PCP) Forms Call Back Authorization, HOME CARE DOCUMENTATION FORM, IMPORTANT VISIT INFORMATION Patient Instructions My [facility] Additional Instructions Rest. Drink plenty of fluids. Return if: Worsening of symptoms, increasing pain, fever chills, any new problems or concerns Follow-up with your doctor this week for recheck and you may need to see a GI specialist Use carafate 10mL, 1 hour before meals to coat the stomach Problem Qualifiers
[2018-01-20 15:35] LABS: BLOOD UREA NITROGEN 11 mg/dl (7-18); CALCIUM 9.6 mg/dl (8.5-10.1); CARBON DIOXIDE 30 mmol/L (21-32); CREATININE 0.76 mg/dl (0.60-1.20); GLUCOSE 108 mg/dl (70-99); POTASSIUM 3.4 mmol/L (3.5-5.1); SODIUM 137 mmol/L (136-145)
[2018-01-20 15:41] LABS: ALBUMIN 3.5 gm/dl (3.4-5.0); TOTAL PROTEIN 7.7 gm/dl (6.4-8.2)
--- NOTE | 2018-01-20 15:45 | DIAGNOSTIC IMAGING REPORT ---
GALLBLADDER-ABD LIMITED CLINICAL HISTORY: 62 years-old Female presenting with eval for GB disease. TECHNIQUE: Real-time grayscale and limited color Doppler ultrasound imaging of the abdomen limited to the right upper quadrant was performed. COMPARISON: HIDA scan from 02/13/2017 and ultrasound from 02/11/2017. FINDINGS: Pancreas: Visualized portions of the pancreatic head and body normal. Liver: Moderately hyperechogenic parenchyma with partial obscuration of the right hemidiaphragm, likely indicating moderate steatosis. The liver measures 16.9 cm in maximal sagittal dimension. No sonographic evidence of hepatic mass. Main portal vein patent with normal directional flow. Biliary: No intrahepatic biliary ductal dilatation. Common bile duct measures up to 5 mm in diameter. Gallbladder: Gallbladder sludge. No evidence of gallstones, gallbladder wall thickening, gallbladder distention, or pericholecystic fluid or inflammatory change. Sonographic Ponce's sign negative. Right kidney: Normal in appearance. No hydronephrosis. Ascites: None. Other: None. IMPRESSION: 1. Gallbladder sludge. No cholelithiasis or biliary ductal dilatation. No evidence of cholecystitis. 2. Hepatic steatosis. Correlate with liver function tests to exclude steatohepatitis as a cause for abdominal pain. Electronically signed by: Kiet Mosley M.D. 01/20/2018 3:44 PM Dictated Date/Time: 01/20/2018 3:43 PM
[2018-01-20] MEDS ORDERED: OPTIRAY 320 IV PRN (16:30)
--- NOTE | 2018-01-20 16:49 | DIAGNOSTIC IMAGING REPORT ---
CT ABD/PELVIS IV CONTRAST ONLY CLINICAL HISTORY: Epigastric pain COMPARISON STUDY: February 12, 2017 TECHNIQUE: Following the IV administration of 93 mL of Optiray-320, CT scan of the abdomen and pelvis was performed from the lung bases to the proximal femurs. Images are reviewed in the axial, sagittal, and coronal planes. IV contrast was administered without complication. A dose lowering technique was utilized adhering to the principles of ALARA. CT DOSE: 1254.51 mGycm FINDINGS: Lower chest: There are by basilar atelectatic changes. The heart is mildly enlarged. Liver: There is mild hepatic steatosis. There is a stable 11 mm hypodensity near the level the falciform ligament. Gallbladder: Unremarkable. Spleen: Top normal in size measuring 11.8 cm. No focal masses identified Pancreas: Unremarkable. Adrenal glands: Unremarkable. Kidneys: There is symmetric renal cortical enhancement. The kidneys are normal in size without hydronephrosis. Bowel: There are no transition zones indicate bowel obstruction. The appendix appears normal. There is scattered colonic diverticula. There are no acute peridiverticular inflammatory changes. Peritoneum: There is no intraperitoneal free air or abdominal ascites. There is a tiny fat-containing umbilical hernia. Vasculature: The abdominal aorta is normal in course and caliber. Adenopathy: None. Pelvic viscera: The uterus is surgically absent. There is a 21 mm right adnexal cyst likely ovarian. Skeletal structures: No destructive osseous lesions are seen. IMPRESSION: 1. No acute intra-abdominal or pelvic findings 2. No evidence of bowel obstruction. No evidence of free air 3. Diverticulosis. No evidence of acute diverticulitis 4. Normal appendix 5. 21 mm right adnexal cyst likely ovarian Electronically signed by: David Evans M.D. 01/20/2018 4:48 PM Dictated Date/Time: 01/20/2018 4:44 PM
[2018-01-20] MEDS ORDERED: CRFL PO (17:30)
[2018-01-20 17:49] VITALS: BP 128/80; PULSE 74; O2SAT 95
== END 2018-01-20 17:50 | disposition home or self-care (01) ==
LOC: C.EDB 14:21
DX: R10.13 Epigastric pain (principal); K27.9 Peptic ulcer, site unspecified, unspecified as acute or chronic, without hemorrhage or perforation; Z88.1 Allergy status to other antibiotic agents; Z91.018 Allergy to other foods; Z88.8 Allergy status to other drugs, medicaments and biological substances

== ENCOUNTER → 2018-01-28 | Outpatient (CLI) | payer OTHER ==
[~2018-01-28] MED LIST changes: -CIPR-255 PO; +CRFL PO; +HYDR25TA4 PO; +PROB1CAP41 PO; -SACC250C3 PO
== END | disposition home or self-care (01) ==
LOC: C.LABPBG 10:29
PROVIDERS: ATTEND Physician Assistant
DX: R31.29 Other microscopic hematuria (principal); N39.0 Urinary tract infection, site not specified